=== PATIENT | male | born 1955 | race African-American/Black ===

== ENCOUNTER 2019-07-22 12:53 | Inpatient (IN) | payer MEDICARE, MEDICAID ==
[~2019-07-22] VITALS: Ht 195.6 cm; Wt 72.6 kg
[2019-07-22 12:53] VITALS: BP 105/72
--- NOTE | 2019-07-22 12:53 | NUR ---
ED Nurse Note: patient brought into ED from [facility] due to feeling weakness with BP of 81/54. patient did not get HD. 500ml of NS and zofran 4mg IVP was given en route. currently pt BP 91/60. pt is alert x3.
--- NOTE | 2019-07-22 13:30 | NUR ---
ED Nurse Note: blood sample sent down to lab
--- NOTE | 2019-07-22 13:32 | NUR ---
ED Nurse Note: x ray at bedside.
--- NOTE | 2019-07-22 13:40 | Diagnostic Imaging Report ---
Indication: Dyspnea Comparison: None A single view chest radiograph was obtained. Findings: No definite infiltrate or pulmonary vascular congestion identified. The heart is enlarged. The aorta is mildly enlarged consistent with atherosclerotic vascular disease. The bones are osteopenic. Impression: No acute disease
[2019-07-22 13:46] LABS: BASOPHILS % (AUTO) 1.7 % (0.0-2.0); EOSINOPHILS % (AUTO) 1.9 % (0.0-3.0); HEMATOCRIT 43.4 % (42.0-52.0); HEMOGLOBIN 14.1 G/DL (14.2-18.0); LYMPHOCYTES % (AUTO) 25.5 % (20.0-45.0); MEAN CORPUSCULAR VOLUME 95 FL (80-99); MONOCYTES % (AUTO) 7.9 % (1.0-10.0); PLATELET COUNT 105 K/UL (150-450); RED BLOOD COUNT 4.58 M/UL (4.70-6.10); RED CELL DISTRIBUTION WIDTH 13.2 % (11.6-14.8); WHITE BLOOD COUNT 4.3 K/UL (4.8-10.8)
[2019-07-22 14:04] LABS: ANION GAP 8 mmol/L (5-15); BLOOD UREA NITROGEN 31 mg/dL (7-18); CALCIUM 8.3 MG/DL (8.5-10.1); CARBON DIOXIDE 33 MMOL/L (21-32); CHLORIDE 98 MMOL/L (98-107); CREATININE 9.3 MG/DL (0.55-1.30); POTASSIUM 4.6 MMOL/L (3.5-5.1); SODIUM 139 MMOL/L (136-145)
--- NOTE | 2019-07-22 14:16 | NUR ---
ED Nurse Note: Pt in bed resting, no acute distress is noted at this time.
[2019-07-22 14:21] LABS: ALANINE AMINOTRANSFERASE 20 U/L (12-78); ALBUMIN 3.6 G/DL (3.4-5.0); ALBUMIN/GLOBULIN RATIO 1.1 (1.0-2.7); ALKALINE PHOSPHATASE 121 U/L (46-116); ASPARTATE AMINO TRANSFERASE 22 U/L (15-37); BILIRUBIN,TOTAL 0.7 MG/DL (0.2-1.0); CKMB 1.4 NG/ML (0.0-3.6); CREATINE KINASE 92 U/L (26-308)
[2019-07-22 14:33] VITALS: BP 120/92
[2019-07-22] MEDS ORDERED: FERROUS SULFAT325 MG ORAL (15:56)
[2019-07-22] MEDS ORDERED: ASPIR 8181 MG ORAL (15:56)
[2019-07-22] MEDS ORDERED: VITAMIN C500 M1 ORAL (15:56)
[2019-07-22] MEDS ORDERED: CYMBALTA30 MG ORAL (15:56)
[2019-07-22] MEDS ORDERED: ATORVASTATIN CA20 MG ORAL (15:56)
[2019-07-22] MEDS ORDERED: VITAMIN D32000 UNI3 PO (15:56)
[2019-07-22] MEDS ORDERED: GABAPENTIN100 MG ORAL (15:56)
[2019-07-22] MEDS ORDERED: NAMENDA5 MG ORAL (15:56)
[2019-07-22] MEDS ORDERED: ARGINAID POWDE1 EACH PO (15:56)
[2019-07-22] MEDS ORDERED: METOPROLOL SUCC50 MG ORAL (15:56)
[2019-07-22] MEDS ORDERED: NEPHROVITE1 TAB ORAL (15:56)
--- NOTE | 2019-07-22 15:57 | Emergency Room Report ---
History of Present Illness General Chief Complaint: Generalized Weakness Source: Patient Present Illness HPI This patient has a history of end-stage renal disease and is dialysis dependent. He states that he was feeling "terrible" this morning. He states he could not quite explain his feeling good but he just did not feel well. He went to dialysis and was sent here to [facility] because of a fast heart rate and low blood pressure. He did not receive dialysis there. He denies recent illness. Denies cough or congestion. Denies fever chills. He denies nausea or vomiting. He has no other complaints. Allergies: Coded Allergies: No Known Allergies (Unverified , 07/22/19) Patient History Past Medical History: see triage record, DM, HTN, renal disease, dialysis Social History: Reports: smoking; Denies: alcohol use, drug use Reviewed Nursing Documentation: PMH: Agreed; PSxH: Agreed Nursing Documentation-PMH Past Medical History: No History, Except For Hx Hypertension: Yes Hx Diabetes: Yes Review of Systems All Other Systems: negative except mentioned in HPI Physical Exam Vital Signs Date Time Temp Pulse Resp B/P (MAP) Pulse Ox O2 Delivery O2 Flow Rate FiO2 07/22/19 12:45 97.9 138 16 98/78 (85) 96 Room Air Sp02 EP Interpretation: reviewed, normal General Appearance: no apparent distress, alert, GCS 15, non-toxic Head: normocephalic, atraumatic Eyes: bilateral eye normal inspection, bilateral eye PERRL ENT: hearing grossly normal, normal pharynx, no angioedema, normal voice Neck: full range of motion, supple/symm/no masses Respiratory: chest non-tender, lungs clear, normal breath sounds, no respiratory distress, no retraction, no accessory muscle use, speaking full sentences Cardiovascular #1: no edema, tachycardia Gastrointestinal: normal bowel sounds, non tender, soft, non-distended, no guarding, no rebound Rectal: deferred Musculoskeletal: back normal, normal range of motion, non-tender, other - Cam walker on R. foot. Neurologic: alert, oriented x3, sensory intact, responsive, speech normal, no focal defects Psychiatric: judgement/insight normal, memory normal, mood/affect normal, no suicidal/homicidal ideation Skin: other - See RN skin exam Medical Decision Making Diagnostic Impression: Primary Impression: Tachycardia Additional Impression: ESRD needing dialysis ER Course This patient has significant tachycardia. The patient's heart rate is in the 130s. I am unsure of the etiology of this. The patient does need dialysis. I will admit the patient for further evaluation of his tachycardia and for dialysis. Overall, the patient's laboratory work-up is noncontributory. The patient's potassium is within normal limits. I feel that this patient needs further investigation. Laboratory Tests Test 07/22/19 13:18 White Blood Count 4.3 K/UL (4.8-10.8) L Red Blood Count 4.58 M/UL (4.70-6.10) L Hemoglobin 14.1 G/DL (14.2-18.0) L Hematocrit 43.4 % (42.0-52.0) Mean Corpuscular Volume 95 FL (80-99) Mean Corpuscular Hemoglobin 30.8 PG (27.0-31.0) Mean Corpuscular Hemoglobin Concent 32.6 G/DL (32.0-36.0) Red Cell Distribution Width 13.2 % (11.6-14.8) Platelet Count 105 K/UL (150-450) L Mean Platelet Volume 8.7 FL (6.5-10.1) Neutrophils (%) (Auto) 63.0 % (45.0-75.0) Lymphocytes (%) (Auto) 25.5 % (20.0-45.0) Monocytes (%) (Auto) 7.9 % (1.0-10.0) Eosinophils (%) (Auto) 1.9 % (0.0-3.0) Basophils (%) (Auto) 1.7 % (0.0-2.0) Sodium Level 139 MMOL/L (136-145) Potassium Level 4.6 MMOL/L (3.5-5.1) Chloride Level 98 MMOL/L (98-107) Carbon Dioxide Level 33 MMOL/L (21-32) H Anion Gap 8 mmol/L (5-15) Blood Urea Nitrogen 31 mg/dL (7-18) H Creatinine 9.3 MG/DL (0.55-1.30) H Estimate Glomerular Filtration Rate 5.7 mL/min (>60) Glucose Level 98 MG/DL (74-106) Lactic Acid Level 1.60 mmol/L (0.4-2.0) Calcium Level 8.3 MG/DL (8.5-10.1) L Total Bilirubin 0.7 MG/DL (0.2-1.0) Aspartate Amino Transferase (AST) 22 U/L (15-37) Alanine Aminotransferase (ALT) 20 U/L (12-78) Alkaline Phosphatase 121 U/L (46-116) H Total Creatine Kinase 92 U/L (26-308) Creatine Kinase MB 1.4 NG/ML (0.0-3.6) Creatine Kinase MB Relative Index 1.5 Troponin I 0.024 ng/mL (0.000-0.056) Total Protein 6.9 G/DL (6.4-8.2) Albumin 3.6 G/DL (3.4-5.0) Globulin 3.3 g/dL Albumin/Globulin Ratio 1.1 (1.0-2.7) EKG Diagnostic Results Rate: tachycardiac Rhythm: other - S.tachycardia ST Segments: other - NSST Rhythm Strip Diag. Results EP Interpretation: yes Rate: 130's Rhythm: no PVC's, no ectopy, other - S.tachycardia Chest X-Ray Diagnostic Results Chest X-Ray Diagnostic Results : Chest X-Ray Ordered: Yes # of Views/Limited/Complete: 1 View Indication: Shortness of Breath EP Interpretation: Yes Interpretation: no consolidation, no effusion, no pneumothorax, no acute cardiopulmonary disease Impression: No acute disease Electronically Signed by: DO Shelton Meyer Vital Signs Date Time Temp Pulse Resp B/P (MAP) Pulse Ox O2 Delivery O2 Flow Rate FiO2 07/22/19 14:33 97.8 122 16 120/92 97 Room Air Disposition: ADMITTED INPATIENT Condition: Serious Referrals: NON PHYSICIAN (PCP) Mónica Hearn DO Jul 22, 2019 15:57
[2019-07-22] MEDS ORDERED: Metoprolol Tartrate 5mg/5ml Inj IVP SCH (16:45)
--- NOTE | 2019-07-22 17:09 | NUR ---
ED Nurse Note: Della, nursing supervisor cleaning and annealing here counted $4200 ($[phone]) in front of patient with MARA Mijares and placed in safe envelope and taken to safe area. Addendum: 07/22/19 at 1719 by LATASHA taken to hospital's safe. Record [facility] # [id number]
--- NOTE | 2019-07-22 17:55 | NUR ---
ED Nurse Note: pt brought up to step down floor room 244-2 accompanied by animal laboratory technician and RN in stable condition. IV site left EJ intact. Belonging list signed.
--- NOTE | 2019-07-22 18:00 | NUR ---
NURSE NOTES: Report received from SITE TECHNICIAN Delphine Tong .Pt brought to SDU per blayne awake,alert in no resp distress,denies any discomfort or pain,S-Tach on the monitor,skinwarm and dry with IV to LT External Jugular 18 G,pt is HD,with access to Lt upper arm AV shunt,SR up x2 HOB elevated ,bed lock in lowest position will continue with plans of care.
[2019-07-22 18:10] VITALS: BP 123/78
[2019-07-22] MEDS ORDERED: Miralax 17gm pkt ORAL PRN (19:00)
--- NOTE | 2019-07-22 19:25 | NUR ---
NURSE NOTES: Received report from Deepali Mtz RN. Pt. observed resting in bed; awake and alert x3-4. Pt. refusing to do full body assessment, AM nurse endorsed skin remains intact. Pt denies skin alterations. Pt is on tele monitor with a HR of 126 noted. Pt on RA with an O2 saturation of 85%noted, pt then placed on 2L NC no further s/sx of respiratory distress noted. Pt admits to SOB with exertion and currently at rest; Wheezing noted bilaterally upon auscultation. O2 saturation of 95% noted at this time with application of O2. Left EJ 18G IV catheter noted which remains asymptomatic, intact and patent. Pt denies pain at this time. Medical history reviewed at bedside, pt denies hx of DM. Will discuss with admitting MD. Pt notes he is a [facility] patient with a ,,Fri schedule. Last HD on Friday. Pt denies onset of symptoms until 07/22/19 morning. Left upper arm AV shunt noted; bruit and thrill present. Left upper arm precautions implemented, including bedside sign. Confirmed lower dentures remains at assisted living facility, reading glasses and [employer] cell phone present at bedside. Pt confirms diana was sent off floor to nursing sup for placement in safe. Pt remains resting in bed; bed remains in lowest position with safety wheels engaged, call light within easy reach, bed alarm on, side rails up x3 and bed alarm activated. Will continue plan of care. Will continue to monitor.
[2019-07-22 20:00] VITALS: BP 107/71
[2019-07-22] MEDS: Atorvastatin 20mg tab ORAL SCH (20:20)
--- NOTE | 2019-07-22 20:30 | NUR ---
NURSE NOTES: Pt provided with materials for bed bath and oral care. Pt declines assistance and continues to refuse full skin line assessment. Family present at bedside. Pt provided with dinner compliant with diet order, decrease in appetite noted. Pt remains resting in bed; bed remains in lowest position with safety wheels engaged, call light within easy reach, bed alarm on, side rails up x3 and bed alarm activated. Will continue plan of care. Will continue to monitor.
[2019-07-22] MEDS: NovoLOG Insulin Flexpen SUBQ SCH (20:36)
[2019-07-22] MEDS: Heparin 5000 units/ml inj SUBQ SCH (20:36)
--- NOTE | 2019-07-22 21:00 | NUR ---
NURSE NOTES: Dr Marie present at bedside to assess patient. Pt remains resting in bed; bed remains in lowest position with safety wheels engaged, call light within easy reach, bed alarm on, side rails up x3 and bed alarm activated. Will continue plan of care. Will continue to monitor.
[2019-07-22] MEDS: Albuterol/Ipratropium 3ml neb HHN PRN ×2 (21:03→21:20)
[2019-07-22] MEDS: Zolpidem 5mg tab ORAL PRN (21:22)
--- NOTE | 2019-07-22 21:41 | History & Physical ---
History and Physical History & Physicial Humberto Marie MD Jul 22, 2019 21:41
--- NOTE | 2019-07-22 22:30 | History and Physical Report ---
DATE OF ADMISSION: 07/22/2019 CHIEF COMPLAINT: Palpitation. HISTORY OF PRESENT ILLNESS: This is a 63-year-old gentleman with past medical history significant for hypertension, end-stage renal disease on hemodialysis, renal osteodystrophy, secondary hyperparathyroidism, anxiety disorder, and history of right knee injury, status post of knee surgery as well as left upper extremity AV fistula placement, who has presented to the emergency department after was noted having the palpitations. The patient was on the way to dialysis center was noted to feel heart racing. He fell uncomfortable. He stated he felt terrible and could not quite explain his feeling. He was at [facility] [place] and subsequently on arrival over there, EMS was called and subsequently the patient was transferred to the emergency department. Upon arrival to the emergency room, the patient was noted to have a heart rate of 132 and subsequently was admitted to the hospital with wide complex tachycardia with unknown etiology. PAST MEDICAL HISTORY/PAST SURGICAL HISTORY: As above, history of end-stage renal disease on hemodialysis, history of hypertension, dyslipidemia, and renal osteodystrophy. He denies history of diabetes, however, in the records from the dialysis mention the patient has a history of diabetes type 2 with diabetic chronic kidney disease, not clear about that. History hypercalcemia, secondary hyperparathyroidism, E. coli infection in the past, vitamin D deficiency. The patient has a history of right knee surgery as well as the left upper extremity AV fistula placement. MEDICATIONS: At home, please refer to medication reconciliation. ALLERGIES: No known drug allergies. SOCIAL HISTORY: Denies any alcohol abuse. He smokes one pack of cigarettes a week. He denies any substance abuse. He lives in a board and [facility]. FAMILY HISTORY: Noncontributory. REVIEW OF SYSTEMS: Mostly as above. Denies any dysuria, frequency, or hematuria. Denies any hemoptysis or hematochezia. Denies any suicidal or homicidal ideation. Denies any loss of consciousness. Denies any double vision. PHYSICAL EXAMINATION: VITAL SIGNS: On admission, blood pressure is 98/78, pulse of 138, respirations 16, and temperature 97.9. GENERAL: The patient is awake and responsive, in no acute distress. HEAD AND NECK: Pupils are equal and reactive to light. Extraocular muscles intact. Neck was supple. No JVD. LUNGS: Good air entry. No wheeze or rhonchi. Decreased in the bases. HEART: S1, S2. Tachycardic. No murmur or gallops. ABDOMEN: Soft, nondistended, and nontender. Positive bowel sounds. EXTREMITIES: No cyanosis, clubbing, or edema. Left upper extremity AV fistula was noted functional. NEUROLOGIC: Cranial nerves II to XII grossly intact. The patient is moving all the extremities. Lower extremities weaker than upper extremities. The patient is mostly wheelchair bound. RECTAL/GENITOURINARY: Refused and deferred. PSYCHIATRIC: Mood and affect is intact. LABORATORY DATA: On admission from the emergency department, WBC of 4.3, hemoglobin 14, hematocrit 43, and platelets 105,000. Sodium 139, potassium 4.6, chloride 98, bicarb 33, BUN 31, and creatinine 9.3. GFR is 5.7. Lactic acid is 1.6. Calcium is 8.3. Total bilirubin of 0.9, alkaline phosphatase of 121. Troponin 0.024. TSH is 0.841, free T4 is 1.61. The patient's chest x-ray, no acute cardiopulmonary disease. EKG noted to be wide QRS tachycardia with ventricular rate of 132, right axis deviation, right bundle-branch block. The patient has ST depression in leads V5 and V6 and T-wave inversion was noted in aVL and tall T-waves in the lead V3. ASSESSMENT: 1. Supraventricular tachycardia. 2. End-stage renal disease, on hemodialysis. 3. Hypertension. 4. Anemia of chronic kidney disease. 5. Thrombocytopenia. PLAN: 1. Admit the patient to step-down TRUDI. 2. We will follow up with Dr. Francisco consultation from Pulmonary Critical Care, Dr. Toro from Nephrology, and Dr. Whitmore from Cardiology electrophysiology. 3. Monitor laboratory, 2D echo, and troponin. 4. Resume home medications. 5. Code status, Full Code. 6. DVT prophylaxis, heparin subcutaneous. Humberto Marie M.D. DR: GODFREY JOB#: [id number] CC:
[2019-07-23] VITALS: BP 142/78
[2019-07-23 04:00] VITALS: BP 148/88
--- NOTE | 2019-07-23 04:30 | NUR ---
NURSE NOTES: Elevated troponin resulted, 12 lead EKG performed at bedside. Results same as previous NSR R BBB w/T wave abnormality Will notify cardio. Will continue to monitor.
[2019-07-23 05:08] LABS: BASOPHILS % (AUTO) 2.1 % (0.0-2.0); EOSINOPHILS % (AUTO) 1.8 % (0.0-3.0); HEMATOCRIT 44.5 % (42.0-52.0); HEMOGLOBIN 14.4 G/DL (14.2-18.0); LYMPHOCYTES % (AUTO) 24.5 % (20.0-45.0); MEAN CORPUSCULAR VOLUME 95 FL (80-99); NEUTROPHILS % (AUTO) 64.5 % (45.0-75.0); PLATELET COUNT 100 K/UL (150-450); RED CELL DISTRIBUTION WIDTH 13.3 % (11.6-14.8); WHITE BLOOD COUNT 4.5 K/UL (4.8-10.8)
--- NOTE | 2019-07-23 05:30 | NUR ---
NURSE NOTES: Bedside blood glucose resulted in 61mg/dL. Pt was alert, oriented and asymptomatic. Pt given 120mL of juice per protocol. Will recheck BG in 15 min per protocol. Will continue to monitor.
[2019-07-23] MEDS: NovoLOG Insulin Flexpen SUBQ SCH ×5 (05:45→21:00)
--- NOTE | 2019-07-23 05:45 | NUR ---
NURSE NOTES: Rechecked patients blood sugar per protocol, BG now 73mg/dL. No further actions required. Will continue to monitor.
[2019-07-23 06:01] LABS: ALANINE AMINOTRANSFERASE 19 U/L (12-78); ALBUMIN 3.1 G/DL (3.4-5.0); ALKALINE PHOSPHATASE 102 U/L (46-116); ANION GAP 9 mmol/L (5-15); ASPARTATE AMINO TRANSFERASE 21 U/L (15-37); BILIRUBIN,TOTAL 0.7 MG/DL (0.2-1.0); BLOOD UREA NITROGEN 34 mg/dL (7-18); CALCIUM 8.2 MG/DL (8.5-10.1); CARBON DIOXIDE 31 MMOL/L (21-32); CHLORIDE 98 MMOL/L (98-107); CHOLESTEROL 90 MG/DL (< 200); CREATININE 10.7 MG/DL (0.55-1.30); HDL CHOLESTEROL 36 MG/DL (40-60); POTASSIUM 4.7 MMOL/L (3.5-5.1); SODIUM 138 MMOL/L (136-145); TRIGLYCERIDES 55 MG/DL (30-150)
[2019-07-23 06:18] LABS: PHOSPHORUS 3.1 MG/DL (2.5-4.9)
--- NOTE | 2019-07-23 07:01 | NUR ---
HAND-OFF: Report given to MARA Weems. Pt remains stable at this time.
--- NOTE | 2019-07-23 07:02 | NUR ---
NURSE NOTES: Received report from MARA Gibbs. Observed patient in bed, asleep, arousable to verbal stimuli, verbally responsive and able to make needs known. On room air, no distress noted at this time. Left EJ IV intact and patent. Left upper arm AV shunt noted with good bruit and thrill. Patient denies pain/discomfort at this time. Safety precautions in place, bed locked, alarmed, and in lowest position, side rails up x3, and call light left within reach. Instructed to use call light/call for assistance, verbalized understanding. Will continue plan of care and will continue to monitor patient.
[2019-07-23 08:00] VITALS: BP 155/85
[2019-07-23] MEDS: DULoxetine 30mg cap ORAL SCH (08:45)
[2019-07-23] MEDS: Aspirin EC 81mg tab ORAL SCH (08:45)
[2019-07-23] MEDS: Heparin 5000 units/ml inj SUBQ SCH ×2 (08:45→20:41)
[2019-07-23] MEDS: Metoprolol Succinate XL 50mg tab ORAL SCH ×2 (08:45→20:40)
--- NOTE | 2019-07-23 08:55 | Consultation ---
Consult Note Consult Note asked to eval at the request of Dr Marie for dialysis management patient interviewed and examined data reviewed Patient states that the he has been on hemodialysis for close to 20 years and he did not get his dialysis yesterday as he was not feeling well the reason for his end-stage renal disease is polycystic kidney disease he also has 3 sons the older one was on dialysis and the middle 1 currently is on hemodialysis and he has no contact with his younger son. Patient denies any chest pain however at times feels short of breath. Assessment/Plan ESRD PCKD Tachyarrythmia HTN , however Hypotensive periodically Anemia Depression Plan: HD in am per cardiology per orders Cardiology: Recurrent palpitations of sudden onset and termination despite Lopressor 50 bid. 12 lead ECG by Paramedics at 12:02 and 12:09 and ECG at [place] at 13:37 on all same morphology. Likely SVT with aberrancy ( RBBB, LAFB) as 12 lead in SR has identical ECG morphology. Needs EP Study and ablation at [facility] as patient was hypotensive during the episodes Darron Toro MD Jul 23, 2019 08:54
--- NOTE | 2019-07-23 10:29 | NUR ---
NURSE NOTES: 2D echo at bedside.
--- NOTE | 2019-07-23 10:44 | Consultation ---
History of Present Illness General Date patient seen: Jul 23, 2019 Chief Complaint: Generalized Weakness Present Illness HPI 63 year old male with history of end-stage renal disease, on dialysis, HTN, smoking was sent to [facility] because from Dialysis Center for fast heart rate and low blood pressure. He did not receive dialysis there. He denies recent illness. Denies cough or congestion. Pt was hypotensive in ER and got one liter of NS and admitted to [facility] for further treatment. Allergies: Coded Allergies: No Known Allergies (Unverified , 07/22/19) Medication History Scheduled Arginine/Ascorbate Sod/Pari AC (Arginaid Powder), 1 EACH PO BID, (Reported) Ascorbic Acid* (Vitamin C*), 500 MG ORAL TWICE A DAY, (Reported) Aspirin* (Aspir 81*), 81 MG ORAL DAILY, (Reported) Atorvastatin Calcium* (Atorvastatin Calcium*), 20 MG ORAL BEDTIME, (Reported) Duloxetine Hcl* (Cymbalta*), 30 MG ORAL DAILY, (Reported) Ferrous Sulfate* (Ferrous Sulfate*), 325 MG ORAL DAILY, (Reported) Gabapentin* (Gabapentin*), 100 MG ORAL THREE TIMES A DAY, (Reported) Memantine Hcl* (Namenda*), 5 MG ORAL DAILY, (Reported) Metoprolol Succinate* (Metoprolol Succinate*), 50 MG ORAL BID, (Reported) Vitamin B Cmplx/Vit C/Folic AC (Nephro-Pari Tablet), 1 TAB ORAL DAILY, (Reported ) Miscellaneous Medications Cholecalciferol (Vitamin D3) (Vitamin D3), 2,000 UNIT PO, (Reported) Patient History Healthcare decision maker Resuscitation status Full Code Advanced Directive on File Past Medical/Surgical History Past Medical/Surgical History: (1) Hypotension (2) Polycystic kidney disease (3) Depression (4) History of hypertension (5) ESRD (end stage renal disease) Review of Systems All Other Systems: negative except mentioned in HPI Physical Exam General Appearance: cachetic, thin Lines, tubes and drains: peripheral, central line HEENT: normocephalic, atraumatic Neck: non-tender, normal alignment Respiratory/Chest: chest wall non-tender, lungs clear Breasts: no masses Cardiovascular/Chest: normal peripheral pulses, normal rate Abdomen: normal bowel sounds Genitourinary/Rectal: normal genital exam Extremities: normal range of motion Last 24 Hour Vital Signs Date Time Temp Pulse Resp B/P (MAP) Pulse Ox O2 Delivery O2 Flow Rate FiO2 07/23/19 08:45 71 155/85 07/23/19 08:00 97.9 71 20 155/85 (108) 98 07/23/19 08:00 Nasal Cannula 2.0 07/23/19 07:36 70 07/23/19 04:00 Nasal Cannula 2.0 07/23/19 04:00 98.0 86 20 148/88 (108) 91 07/23/19 03:43 68 07/23/19 00:00 98.8 74 20 142/78 (99) 91 07/23/19 00:00 Nasal Cannula 2.0 07/22/19 23:35 71 07/22/19 21:26 85 20 99 Nasal Cannula 2.0 28 79 20 90 07/22/19 20:00 99.1 126 20 107/71 (83) 92 07/22/19 20:00 Nasal Cannula 2.0 07/22/19 19:22 129 07/22/19 18:53 Nasal Cannula 2.0 07/22/19 18:10 98.1 126 20 123/78 (93) 97 07/22/19 18:02 125 07/22/19 17:55 98.0 128 17 110/75 98 Room Air 07/22/19 16:46 128 114/83 07/22/19 14:33 97.8 122 16 120/92 97 Room Air 07/22/19 12:53 97.9 130 16 105/72 96 Room Air 07/22/19 12:53 130 16 Room Air 07/22/19 12:45 97.9 138 16 98/78 (85) 96 Room Air Intake and Output 07/22/19 07/23/19 19:00 07:00 Intake Total 500 ml 482 ml Balance 500 ml 482 ml Intake Oral 482 ml IV Total 500 ml Laboratory Tests Test 07/22/19 13:18 07/22/19 13:30 07/23/19 04:40 White Blood Count 4.3 K/UL (4.8-10.8) L 4.5 K/UL (4.8-10.8) L Red Blood Count 4.58 M/UL (4.70-6.10) L 4.70 M/UL (4.70-6.10) Hemoglobin 14.1 G/DL (14.2-18.0) L 14.4 G/DL (14.2-18.0) Hematocrit 43.4 % (42.0-52.0) 44.5 % (42.0-52.0) Mean Corpuscular Volume 95 FL (80-99) 95 FL (80-99) Mean Corpuscular Hemoglobin 30.8 PG (27.0-31.0) 30.6 PG (27.0-31.0) Mean Corpuscular Hemoglobin Concent 32.6 G/DL (32.0-36.0) 32.3 G/DL (32.0-36.0) Red Cell Distribution Width 13.2 % (11.6-14.8) 13.3 % (11.6-14.8) Platelet Count 105 K/UL (150-450) L 100 K/UL (150-450) L Mean Platelet Volume 8.7 FL (6.5-10.1) 8.6 FL (6.5-10.1) Neutrophils (%) (Auto) 63.0 % (45.0-75.0) 64.5 % (45.0-75.0) Lymphocytes (%) (Auto) 25.5 % (20.0-45.0) 24.5 % (20.0-45.0) Monocytes (%) (Auto) 7.9 % (1.0-10.0) 7.0 % (1.0-10.0) Eosinophils (%) (Auto) 1.9 % (0.0-3.0) 1.8 % (0.0-3.0) Basophils (%) (Auto) 1.7 % (0.0-2.0) 2.1 % (0.0-2.0) H Sodium Level 139 MMOL/L (136-145) 138 MMOL/L (136-145) Potassium Level 4.6 MMOL/L (3.5-5.1) 4.7 MMOL/L (3.5-5.1) Chloride Level 98 MMOL/L (98-107) 98 MMOL/L (98-107) Carbon Dioxide Level 33 MMOL/L (21-32) H 31 MMOL/L (21-32) Anion Gap 8 mmol/L (5-15) 9 mmol/L (5-15) Blood Urea Nitrogen 31 mg/dL (7-18) H 34 mg/dL (7-18) H Creatinine 9.3 MG/DL (0.55-1.30) H 10.7 MG/DL (0.55-1.30) H Estimat Glomerular Filtration Rate 5.7 mL/min (>60) 5.9 mL/min (>60) Glucose Level 98 MG/DL (74-106) 66 MG/DL (74-106) L Lactic Acid Level 1.60 mmol/L (0.4-2.0) Calcium Level 8.3 MG/DL (8.5-10.1) L 8.2 MG/DL (8.5-10.1) L Total Bilirubin 0.7 MG/DL (0.2-1.0) 0.7 MG/DL (0.2-1.0) Aspartate Amino Transf (AST/SGOT) 22 U/L (15-37) 21 U/L (15-37) Alanine Aminotransferase (ALT/SGPT) 20 U/L (12-78) 19 U/L (12-78) Alkaline Phosphatase 121 U/L (46-116) H 102 U/L (46-116) Total Creatine Kinase 92 U/L (26-308) Creatine Kinase MB 1.4 NG/ML (0.0-3.6) Creatine Kinase MB Relative Index 1.5 Troponin I 0.024 ng/mL (0.000-0.056) Total Protein 6.9 G/DL (6.4-8.2) 6.1 G/DL (6.4-8.2) L Albumin 3.6 G/DL (3.4-5.0) 3.1 G/DL (3.4-5.0) L Globulin 3.3 g/dL 3.0 g/dL Albumin/Globulin Ratio 1.1 (1.0-2.7) 1.0 (1.0-2.7) Thyroid Stimulating Hormone (TSH) 0.841 uiU/mL (0.358-3.740) 0.244 uiU/mL (0.358-3.740) Free Thyroxine 1.61 NG/DL (0.76-1.46) H Hemoglobin A1c 5.0 % (4.3-6.0) Uric Acid 4.1 MG/DL (2.6-7.2) Phosphorus Level 3.1 MG/DL (2.5-4.9) Magnesium Level 2.2 MG/DL (1.8-2.4) C-Reactive Protein, Quantitative < 0.4 mg/dL (0.00-0.90) Pro-B-Type Natriuretic Peptide 51580 pg/mL (0-125) H Triglycerides Level 55 MG/DL (30-150) Cholesterol Level 90 MG/DL (< 200) LDL Cholesterol 50 mg/dL (<100) HDL Cholesterol 36 MG/DL (40-60) L Cholesterol/HDL Ratio 2.5 (3.3-4.4) L Height (Feet): 6 Height (Inches): 5.00 Weight (Pounds): 169 Medications Current Medications Medications (Trade) Dose Ordered Sig/Cristofer Route PRN Reason Start Time Stop Time Status Last Admin Dose Admin Acetaminophen (Tylenol) 650 mg Q4H PRN ORAL fever 07/22/19 19:00 08/21/19 18:59 Albuterol/ Ipratropium (Albuterol/ Ipratropium) 3 ml Q6HRT PRN HHN dyspnea 07/22/19 19:00 07/27/19 18:59 07/22/19 21:20 Aspirin (Ecotrin) 81 mg DAILY ORAL 07/23/19 09:00 08/22/19 08:59 07/23/19 08:45 Atorvastatin Calcium (Lipitor) 20 mg BEDTIME ORAL 07/22/19 21:00 08/21/19 20:59 07/22/19 20:20 Clonidine HCl (Catapres Tab) 0.1 mg Q4H PRN ORAL For High Blood Pressure 07/22/19 19:00 08/21/19 18:59 Dextrose (Dextrose 50%) 25 ml Q30M PRN IV Hypoglycemia 07/22/19 19:00 08/21/19 18:59 Dextrose (Dextrose 50%) 50 ml Q30M PRN IV Hypoglycemia 07/22/19 19:00 08/21/19 18:59 Duloxetine HCl (Cymbalta) 30 mg DAILY ORAL 07/23/19 09:00 08/22/19 08:59 07/23/19 08:45 Gabapentin (Neurontin) 100 mg THREE TIMES A DAY ORAL 07/23/19 09:00 08/22/19 08:59 07/23/19 08:45 Heparin Sodium (Porcine) (Heparin 5000 units/ml) 5,000 units EVERY 12 HOURS SUBQ 07/22/19 21:00 08/21/19 20:59 Insulin Aspart (NovoLOG) BEFORE MEALS AND HS SUBQ 07/22/19 21:00 08/21/19 20:59 Metoprolol Succinate (Toprol XL) 50 mg Q12HR ORAL 07/23/19 09:00 08/22/19 08:59 07/23/19 08:45 Metoprolol Tartrate (Lopressor) 5 mg Q5MIN X 3 IVP 07/22/19 16:45 08/21/19 16:44 07/22/19 16:46 Ondansetron HCl (Zofran) 4 mg Q6H PRN IVP Nausea & Vomiting 07/22/19 19:00 08/21/19 18:59 Polyethylene Glycol (Miralax) 17 gm HSPRN PRN ORAL Constipation 07/22/19 19:00 08/21/19 18:59 Zolpidem Tartrate (Ambien) 5 mg HSPRN PRN ORAL Insomnia 07/22/19 19:00 07/29/19 18:59 07/22/19 21:22 Assessment/Plan Problem List: (1) Hypotension ICD Codes: I95.9 - Hypotension, unspecified SNOMED: 22808974 (2) COPD (chronic obstructive pulmonary disease) ICD Codes: J44.9 - Chronic obstructive pulmonary disease, unspecified SNOMED: 09690940 (3) Nicotine addiction ICD Codes: F17.200 - Nicotine dependence, unspecified, uncomplicated SNOMED: 80767621 (4) Tachycardia ICD Codes: R00.0 - Tachycardia, unspecified; Z99.2 - Dependence on renal dialysis SNOMED: 2636197 (5) Polycystic kidney disease ICD Codes: Q61.3 - Polycystic kidney, unspecified SNOMED: 242476576 (6) ESRD (end stage renal disease) ICD Codes: N18.6 - End stage renal disease SNOMED: 40777793 (7) History of hypertension ICD Codes: Z86.79 - Personal history of other diseases of the circulatory system SNOMED: 638066516 (8) Depression ICD Codes: F32.9 - Major depressive disorder, single episode, unspecified SNOMED: 43325334 Assessment/Plan: telemetry monitoring respiratory treatment Nicotine Patch if needed echo titrate cardiac meds dvt prophylaxis resume antidepressants Funmilayo Francisco MD Jul 23, 2019 10:44
--- NOTE | 2019-07-23 11:30 | Cardiac Electrophysiology PN ---
Subjective Subjective Recurrent palpitations of sudden onset and termination despite Lopressor 50 bid. 12 lead ECG by Paramedics at 12:02 and 12:09 and ECG at [place] at 13:37 on all same morphology. Likely SVT with aberrancy ( RBBB, LAFB) as 12 lead in SR has identical ECG morphology. Needs EP Study and ablation at [facility] as patient was hypotensive during the episodes Dictated [id number] DW RN, Dr Marie and [facility] Transfer [facility] Objective Last 24 Hour Vital Signs Date Time Temp Pulse Resp B/P (MAP) Pulse Ox O2 Delivery O2 Flow Rate FiO2 07/23/19 08:45 71 155/85 07/23/19 08:00 97.9 71 20 155/85 (108) 98 07/23/19 08:00 Nasal Cannula 2.0 07/23/19 07:36 70 07/23/19 04:00 Nasal Cannula 2.0 07/23/19 04:00 98.0 86 20 148/88 (108) 91 07/23/19 03:43 68 07/23/19 00:00 98.8 74 20 142/78 (99) 91 07/23/19 00:00 Nasal Cannula 2.0 07/22/19 23:35 71 07/22/19 21:26 85 20 99 Nasal Cannula 2.0 28 79 20 90 07/22/19 20:00 99.1 126 20 107/71 (83) 92 07/22/19 20:00 Nasal Cannula 2.0 07/22/19 19:22 129 07/22/19 18:53 Nasal Cannula 2.0 07/22/19 18:10 98.1 126 20 123/78 (93) 97 07/22/19 18:02 125 07/22/19 17:55 98.0 128 17 110/75 98 Room Air 07/22/19 16:46 128 114/83 07/22/19 14:33 97.8 122 16 120/92 97 Room Air 07/22/19 12:53 97.9 130 16 105/72 96 Room Air 07/22/19 12:53 130 16 Room Air 07/22/19 12:45 97.9 138 16 98/78 (85) 96 Room Air Intake and Output 07/22/19 07/23/19 19:00 07:00 Intake Total 500 ml 482 ml Balance 500 ml 482 ml Intake Oral 482 ml IV Total 500 ml Laboratory Tests Test 07/22/19 13:18 07/22/19 13:30 07/23/19 04:40 White Blood Count 4.3 K/UL (4.8-10.8) L 4.5 K/UL (4.8-10.8) L Red Blood Count 4.58 M/UL (4.70-6.10) L 4.70 M/UL (4.70-6.10) Hemoglobin 14.1 G/DL (14.2-18.0) L 14.4 G/DL (14.2-18.0) Hematocrit 43.4 % (42.0-52.0) 44.5 % (42.0-52.0) Mean Corpuscular Volume 95 FL (80-99) 95 FL (80-99) Mean Corpuscular Hemoglobin 30.8 PG (27.0-31.0) 30.6 PG (27.0-31.0) Mean Corpuscular Hemoglobin Concent 32.6 G/DL (32.0-36.0) 32.3 G/DL (32.0-36.0) Red Cell Distribution Width 13.2 % (11.6-14.8) 13.3 % (11.6-14.8) Platelet Count 105 K/UL (150-450) L 100 K/UL (150-450) L Mean Platelet Volume 8.7 FL (6.5-10.1) 8.6 FL (6.5-10.1) Neutrophils (%) (Auto) 63.0 % (45.0-75.0) 64.5 % (45.0-75.0) Lymphocytes (%) (Auto) 25.5 % (20.0-45.0) 24.5 % (20.0-45.0) Monocytes (%) (Auto) 7.9 % (1.0-10.0) 7.0 % (1.0-10.0) Eosinophils (%) (Auto) 1.9 % (0.0-3.0) 1.8 % (0.0-3.0) Basophils (%) (Auto) 1.7 % (0.0-2.0) 2.1 % (0.0-2.0) H Sodium Level 139 MMOL/L (136-145) 138 MMOL/L (136-145) Potassium Level 4.6 MMOL/L (3.5-5.1) 4.7 MMOL/L (3.5-5.1) Chloride Level 98 MMOL/L (98-107) 98 MMOL/L (98-107) Carbon Dioxide Level 33 MMOL/L (21-32) H 31 MMOL/L (21-32) Anion Gap 8 mmol/L (5-15) 9 mmol/L (5-15) Blood Urea Nitrogen 31 mg/dL (7-18) H 34 mg/dL (7-18) H Creatinine 9.3 MG/DL (0.55-1.30) H 10.7 MG/DL (0.55-1.30) H Estimat Glomerular Filtration Rate 5.7 mL/min (>60) 5.9 mL/min (>60) Glucose Level 98 MG/DL (74-106) 66 MG/DL (74-106) L Lactic Acid Level 1.60 mmol/L (0.4-2.0) Calcium Level 8.3 MG/DL (8.5-10.1) L 8.2 MG/DL (8.5-10.1) L Total Bilirubin 0.7 MG/DL (0.2-1.0) 0.7 MG/DL (0.2-1.0) Aspartate Amino Transf (AST/SGOT) 22 U/L (15-37) 21 U/L (15-37) Alanine Aminotransferase (ALT/SGPT) 20 U/L (12-78) 19 U/L (12-78) Alkaline Phosphatase 121 U/L (46-116) H 102 U/L (46-116) Total Creatine Kinase 92 U/L (26-308) Creatine Kinase MB 1.4 NG/ML (0.0-3.6) Creatine Kinase MB Relative Index 1.5 Troponin I 0.024 ng/mL (0.000-0.056) Total Protein 6.9 G/DL (6.4-8.2) 6.1 G/DL (6.4-8.2) L Albumin 3.6 G/DL (3.4-5.0) 3.1 G/DL (3.4-5.0) L Globulin 3.3 g/dL 3.0 g/dL Albumin/Globulin Ratio 1.1 (1.0-2.7) 1.0 (1.0-2.7) Thyroid Stimulating Hormone (TSH) 0.841 uiU/mL (0.358-3.740) 0.244 uiU/mL (0.358-3.740) Free Thyroxine 1.61 NG/DL (0.76-1.46) H Hemoglobin A1c 5.0 % (4.3-6.0) Uric Acid 4.1 MG/DL (2.6-7.2) Phosphorus Level 3.1 MG/DL (2.5-4.9) Magnesium Level 2.2 MG/DL (1.8-2.4) C-Reactive Protein, Quantitative < 0.4 mg/dL (0.00-0.90) Pro-B-Type Natriuretic Peptide 75652 pg/mL (0-125) H Triglycerides Level 55 MG/DL (30-150) Cholesterol Level 90 MG/DL (< 200) LDL Cholesterol 50 mg/dL (<100) HDL Cholesterol 36 MG/DL (40-60) L Cholesterol/HDL Ratio 2.5 (3.3-4.4) L Gerard Whitmore MD Jul 23, 2019 11:30
--- NOTE | 2019-07-23 11:41 | NUR ---
NURSE NOTES: Dr Whitmore at bedside, ordered STAT EKG. Carried out, results given to
[2019-07-23 12:00] VITALS: BP 154/84
--- NOTE | 2019-07-23 15:20 | NUR ---
HAND-OFF: Report given to Deepali Purdy RN?. Endorsed plan of care. Patient in stable condition.
--- NOTE | 2019-07-23 15:30 | NUR ---
NURSE NOTES: Assumed pt care,report received from Arlene Horton RN.Pt awake,alert no resp distress denies any c/o pain or discomfort,SR on the monitor.Informed pt re Hemodialysis tomorrow with [facility] and need for a signed consent.,verbalized understanding.
--- NOTE | 2019-07-23 15:48 | NUR ---
CASE MANAGEMENT:INITIAL REVIEW 63 YR OLD MALE BIBA FROM [facility] CC;GENERALIZED WEAKNESS SI;TACHYCARDIA. ESRD NEEDING DIALYSIS. 97.9 138 16 98/78 96% ON RA BUN 34 CR 10.7 BG 66 BNP [id number] IS;CXR - No acute disease ADMITTED TO SDU SDU STATUS DCP;FROM [facility]
[2019-07-23 16:00] VITALS: BP 161/88
--- NOTE | 2019-07-23 16:30 | Consultation ---
DATE OF CONSULTATION: 07/23/2019 CARDIOLOGY CONSULTATION CONSULTING PHYSICIAN: Gerard Whitmore M.D. REFERRING PHYSICIAN: Humberto Marie M.D. REASON FOR CONSULTATION: Palpitation and supraventricular tachycardia. HISTORY OF PRESENT ILLNESS: The patient is a very pleasant 63-year-old gentleman with history of hypertension and end-stage renal disease on hemodialysis as well as hyperparathyroidism and anxiety disorder was brought to the emergency room as he was noted to have palpitation. On the way to dialysis, he felt that his heart was racing and felt uncomfortable. The patient was noted to be tachycardic at the [facility] and paramedics were called. The patient was brought to the emergency room. In the ER, the patient's heart rate was more than 130 beats per minute and it was wide complex tachycardia with right bundle-branch block morphology. The patient was admitted to step-down unit and Cardiology electrophysiology consultation was requested for further evaluation. It is of note that the patient's EKG on July 22, 2019 at 12:02 as well as at 13:37 showed the same morphology of wide complex tachycardia, likely SVT with aberrancy. The patient was admitted. Overnight, the patient again had an episode of SVT of sudden onset and sudden termination. REVIEW OF SYSTEMS: Review of systems was negative other than what was mentioned in history of present illness. PAST MEDICAL HISTORY: As mentioned above. FAMILY HISTORY: Noncontributory. SOCIAL HISTORY: He lives in assisted living. Smokes a pack of cigarettes a week. Does not drink alcohol or use any drugs. FAMILY HISTORY: Noncontributory. PHYSICAL EXAMINATION: VITAL SIGNS: Show blood pressure of 150/85, pulse 71, respirations 18, and temperature 97.9. HEAD AND NECK: Shows no jugular venous distention. LUNGS: Clear. CARDIOVASCULAR: Regular S1 and S2 with no gallop or murmur. ABDOMEN: Soft. EXTREMITIES: No pitting edema. LABORATORY AND DIAGNOSTIC DATA: Labs show white count of 4.5, hemoglobin of 14.4, hematocrit of 44.5, and platelet count of 100. Sodium 138, potassium 4.7, BUN of 34, creatinine of 2.7, glucose of . BNP is 13,331. First troponin was negative. ASSESSMENT AND PLAN: 1. Recurrent palpitation. The patient states that he has had palpitation off and on over the last year, but never this severe and never lasted this long. EKG showed wide complex tachycardia with no discrete P-wave with right bundle-branch block and left axis deviation morphology. This could be SVT with aberrancy, right bundle-branch block and left anterior hemiblock morphology. We will get a 12-lead EKG to compare the EKG and sinus rhythm. This happened while the patient is on metoprolol 50 mg b.i.d. The best option at this point would be to undergo electrophysiology study for further evaluation of his arrhythmia. This will be discussed with the patient and Dr. Marie. Transfer the patient to [facility] for further evaluation. In the meantime, continue the patient on b.i.d. 2. Hypertension on Toprol 50 mg b.i.d. as well p.r.n. clonidine. 3. End-stage renal disease, on hemodialysis. 4. Hyperlipidemia on Lipitor. Thank you very much, Dr. Marie, for allowing me to participate in the care of this patient. Please do not hesitate to contact me for any questions regarding my evaluation. Sincerely, Gerard Whitmore M.D. DR: Ignacio JOB#: [id number] CC:
--- NOTE | 2019-07-23 17:03 | Internal Med Progress Note ---
Subjective Physician Name Humberto Marie Attending Physician Humberto Marie MD Current Medications Medications (Trade) Dose Ordered Sig/Cristofer Route PRN Reason Start Time Stop Time Status Last Admin Dose Admin Acetaminophen (Tylenol) 650 mg Q4H PRN ORAL fever 07/22/19 19:00 08/21/19 18:59 Albuterol/ Ipratropium (Albuterol/ Ipratropium) 3 ml Q6HRT PRN HHN dyspnea 07/22/19 19:00 07/27/19 18:59 07/22/19 21:20 Aspirin (Ecotrin) 81 mg DAILY ORAL 07/23/19 09:00 08/22/19 08:59 07/23/19 08:45 Atorvastatin Calcium (Lipitor) 20 mg BEDTIME ORAL 07/22/19 21:00 08/21/19 20:59 07/22/19 20:20 Clonidine HCl (Catapres Tab) 0.1 mg Q4H PRN ORAL For High Blood Pressure 07/22/19 19:00 08/21/19 18:59 Dextrose (Dextrose 50%) 25 ml Q30M PRN IV Hypoglycemia 07/22/19 19:00 08/21/19 18:59 Dextrose (Dextrose 50%) 50 ml Q30M PRN IV Hypoglycemia 07/22/19 19:00 08/21/19 18:59 Duloxetine HCl (Cymbalta) 30 mg DAILY ORAL 07/23/19 09:00 08/22/19 08:59 07/23/19 08:45 Gabapentin (Neurontin) 100 mg THREE TIMES A DAY ORAL 07/23/19 09:00 08/22/19 08:59 07/23/19 13:18 Heparin Sodium (Porcine) (Heparin 5000 units/ml) 5,000 units EVERY 12 HOURS SUBQ 07/22/19 21:00 08/21/19 20:59 Insulin Aspart (NovoLOG) BEFORE MEALS AND HS SUBQ 07/22/19 21:00 08/21/19 20:59 Metoprolol Succinate (Toprol XL) 50 mg Q12HR ORAL 07/23/19 09:00 08/22/19 08:59 07/23/19 08:45 Ondansetron HCl (Zofran) 4 mg Q6H PRN IVP Nausea & Vomiting 07/22/19 19:00 08/21/19 18:59 Polyethylene Glycol (Miralax) 17 gm HSPRN PRN ORAL Constipation 07/22/19 19:00 08/21/19 18:59 Zolpidem Tartrate (Ambien) 5 mg HSPRN PRN ORAL Insomnia 07/22/19 19:00 07/29/19 18:59 07/22/19 21:22 Allergies: Coded Allergies: No Known Allergies (Unverified , 07/22/19) Subjective Awake, alert, responsive, denies any chest pain, denies any shortness of breath or palpitation. Objective Last Vital Signs Date Time Temp Pulse Resp B/P (MAP) Pulse Ox O2 Delivery O2 Flow Rate FiO2 07/23/19 12:00 98.0 68 20 154/84 (107) 92 07/23/19 12:00 Nasal Cannula 2.0 07/22/19 21:26 28 Laboratory Tests Test 07/23/19 04:40 White Blood Count 4.5 K/UL (4.8-10.8) L Red Blood Count 4.70 M/UL (4.70-6.10) Hemoglobin 14.4 G/DL (14.2-18.0) Hematocrit 44.5 % (42.0-52.0) Mean Corpuscular Volume 95 FL (80-99) Mean Corpuscular Hemoglobin 30.6 PG (27.0-31.0) Mean Corpuscular Hemoglobin Concent 32.3 G/DL (32.0-36.0) Red Cell Distribution Width 13.3 % (11.6-14.8) Platelet Count 100 K/UL (150-450) L Mean Platelet Volume 8.6 FL (6.5-10.1) Neutrophils (%) (Auto) 64.5 % (45.0-75.0) Lymphocytes (%) (Auto) 24.5 % (20.0-45.0) Monocytes (%) (Auto) 7.0 % (1.0-10.0) Eosinophils (%) (Auto) 1.8 % (0.0-3.0) Basophils (%) (Auto) 2.1 % (0.0-2.0) H Sodium Level 138 MMOL/L (136-145) Potassium Level 4.7 MMOL/L (3.5-5.1) Chloride Level 98 MMOL/L (98-107) Carbon Dioxide Level 31 MMOL/L (21-32) Anion Gap 9 mmol/L (5-15) Blood Urea Nitrogen 34 mg/dL (7-18) H Creatinine 10.7 MG/DL (0.55-1.30) H Estimat Glomerular Filtration Rate 5.9 mL/min (>60) Glucose Level 66 MG/DL (74-106) L Hemoglobin A1c 5.0 % (4.3-6.0) Uric Acid 4.1 MG/DL (2.6-7.2) Calcium Level 8.2 MG/DL (8.5-10.1) L Phosphorus Level 3.1 MG/DL (2.5-4.9) Magnesium Level 2.2 MG/DL (1.8-2.4) Total Bilirubin 0.7 MG/DL (0.2-1.0) Aspartate Amino Transf (AST/SGOT) 21 U/L (15-37) Alanine Aminotransferase (ALT/SGPT) 19 U/L (12-78) Alkaline Phosphatase 102 U/L (46-116) C-Reactive Protein, Quantitative < 0.4 mg/dL (0.00-0.90) Pro-B-Type Natriuretic Peptide 00837 pg/mL (0-125) H Total Protein 6.1 G/DL (6.4-8.2) L Albumin 3.1 G/DL (3.4-5.0) L Globulin 3.0 g/dL Albumin/Globulin Ratio 1.0 (1.0-2.7) Triglycerides Level 55 MG/DL (30-150) Cholesterol Level 90 MG/DL (< 200) LDL Cholesterol 50 mg/dL (<100) HDL Cholesterol 36 MG/DL (40-60) L Cholesterol/HDL Ratio 2.5 (3.3-4.4) L Thyroid Stimulating Hormone (TSH) 0.244 uiU/mL (0.358-3.740) Intake and Output 07/22/19 07/23/19 19:00 07:00 Intake Total 500 ml 482 ml Balance 500 ml 482 ml Intake Oral 482 ml IV Total 500 ml Objective GENERAL: The patient is awake and responsive, in no acute distress. HEAD AND NECK: Pupils are equal and reactive to light. Extraocular muscles intact. Neck was supple. No JVD. LUNGS: Good air entry. No wheeze or rhonchi. Decreased in the bases. HEART: S1, S2 RR. No murmur or gallops. ABDOMEN: Soft, nondistended, and nontender. Positive bowel sounds. EXTREMITIES: No cyanosis, clubbing, or edema. Left upper extremity AV fistula was noted functional. NEUROLOGIC: Cranial nerves II to XII grossly intact. The patient is moving all the extremities. Lower extremities weaker than upper extremities. The patient is mostly wheelchair bound. RECTAL/GENITOURINARY: Refused and deferred. PSYCHIATRIC: Mood and affect is intact. Assessment/Plan Assessment/Plan ASSESSMENT: 1. Supraventricular tachycardia. 2. End-stage renal disease, on hemodialysis. 3. Hypertension. 4. Anemia of chronic kidney disease. 5. Thrombocytopenia. PLAN: 1. In step-down TRUDI. 2. We will follow up with Dr. Francisco consultation from Pulmonary Critical Care, Dr. Toro from Nephrology, and Dr. Whitmore from Cardiology electrophysiology. 3. Monitor laboratory, 2D echo, and troponin. 4. Resume home medications. 5. Code status, Full Code. 6. DVT prophylaxis, heparin subcutaneous. 7. Needs EP Study and ablation at [facility] as patient was hypotensive during the episodes, call [facility] Transfer center, waiting for bed. Humberto Marie MD Jul 23, 2019 17:03
--- NOTE | 2019-07-23 19:07 | NUR ---
HAND-OFF: Report given to Kate Danielle RN,pt stable no distress presented..
--- NOTE | 2019-07-23 19:21 | NUR ---
NURSE NOTES: Received report from Deepali Mtz RN. Pt. observed resting in bed; awake and alert x3-4. Pt denies skin alterations. Pt is on tele monitor with a HR of 70 noted. Pt on 2L NC with an O2 saturation of 95% noted. Pt admits to SOB with exertion and currently at rest; Mild wheezing noted bilaterally upon auscultation. Left EJ 18G IV catheter noted which remains asymptomatic, intact and patent. Pt denies pain at this time. Left upper arm AV shunt noted; bruit and thrill present. HD scheduled for Friday, will follow up with [facility]. Pt provided with dinner compliant with diet order. Reading glasses and ixigo cell phone remain present at bedside. Pt remains resting in bed; bed remains in lowest position with safety wheels engaged, call light within easy reach, bed alarm on, side rails up x3 and bed alarm activated. Will continue plan of care. Will continue to monitor.
[2019-07-23 20:00] VITALS: BP 158/82
--- NOTE | 2019-07-23 20:20 | NUR ---
NURSE NOTES: Pt ambulated to bedside commode, black/tar like large BM noted. Will inform MD and seek order to FOB. Pt provided with materials for bed bath and oral care.Pt accepted minimal assistance but continues to refuse full skin line assessment. Pt allowed assessment and application of lotion to bilateral lower extremities but declines assessment of sacrum at this time. Wound noted to anterior right foot, pt states he has had the wound for months and is unaware of how he acquired it. Pts shoes assessed and pt encouraged to use non-slip fall socks until further assessment as the laces are applying pressure. Again, asked pt to assess sacrum, pt continues to decline. Wound remains closed, bed of wound yellow in color with no drainage noted. Optifoam applied for protection and cleansed with NS. Will update plan of care and seek wound consult. Pt provided with dinner compliant with diet order, decrease in appetite noted. Pt educated on hypoglycemia and hypoglycemic event on 07/22/19. Pt informed of s/sx of hypoglycemia and agrees to report onset of s/sx. Negotiated with pt to drink 120 mL of juice and eat a total of 50% of dinner. Pt educated on HD and plans for electrophysiology study. Pt remains resting in bed; bed remains in lowest position with safety wheels engaged, call light within easy reach, bed alarm on, side rails up x3 and bed alarm activated. Will continue plan of care. Will continue to monitor.
[2019-07-23] MEDS: Zolpidem 5mg tab ORAL PRN (20:40)
[2019-07-23] MEDS: Atorvastatin 20mg tab ORAL SCH (20:40)
--- NOTE | 2019-07-23 20:40 | NUR ---
NURSE NOTES: Pt requests Ambien for insomnia. Pt educated on medication and agrees to use call light for assistance. Pt provided Ambien as requested, no adverse effects noted. Pt remains resting in bed; bed remains in lowest position with safety wheels engaged, call light within easy reach, bed alarm on, side rails up x3 and bed alarm activated. Will continue plan of care. Will continue to monitor.
--- NOTE | 2019-07-23 21:00 | NUR ---
NURSE NOTES: Heparin held, black BM noted and platelet count decreased from 105 to 100 on 07/23/19, no other s/sx of active bleeding noted. Will notify MD. Will continue to monitor.
[2019-07-24] VITALS: BP 142/78
[2019-07-24 04:00] VITALS: BP 152/76
[2019-07-24 05:46] LABS: HEMATOCRIT 37.3 % (42.0-52.0); HEMOGLOBIN 12.5 G/DL (14.2-18.0); MEAN CORPUSCULAR VOLUME 93 FL (80-99); PLATELET COUNT 97 K/UL (150-450); RED CELL DISTRIBUTION WIDTH 12.9 % (11.6-14.8); WHITE BLOOD COUNT 8.7 K/UL (4.8-10.8)
[2019-07-24] MEDS: NovoLOG Insulin Flexpen SUBQ SCH ×5 (05:56→20:30)
[2019-07-24 06:39] LABS: ALANINE AMINOTRANSFERASE 17 U/L (12-78); ALBUMIN 3.1 G/DL (3.4-5.0); ALKALINE PHOSPHATASE 106 U/L (46-116); ANION GAP 9 mmol/L (5-15); ASPARTATE AMINO TRANSFERASE 18 U/L (15-37); BLOOD UREA NITROGEN 40 mg/dL (7-18); CALCIUM 8.3 MG/DL (8.5-10.1); CARBON DIOXIDE 32 MMOL/L (21-32); CHLORIDE 99 MMOL/L (98-107); CREATININE 12.4 MG/DL (0.55-1.30); SODIUM 139 MMOL/L (136-145)
[2019-07-24 06:51] LABS: PHOSPHORUS 3.5 MG/DL (2.5-4.9)
--- NOTE | 2019-07-24 07:25 | NUR ---
HAND-OFF: Report given to MARA Sorto. Pt remains stable at this time.
--- NOTE | 2019-07-24 07:30 | NUR ---
NURSE NOTES: Received bedside report from Kate Brooks RN. Pt. in bed, RN served set up his tray breakfast. A/O x 4. No sign of distress. On 2LPM via NC. Denies pain at present. AV shunt at left upper arm (+) for bruit/thrill. IV site at left EJ #[id number]. in placed SL. Pt. scheduled for HD today via [facility]. Bed in low position, locked. Call light within reach. Will cont. to monitor.
[2019-07-24 08:00] VITALS: BP 157/88
[2019-07-24] MEDS: Aspirin EC 81mg tab ORAL SCH (08:18)
[2019-07-24] MEDS: DULoxetine 30mg cap ORAL SCH (08:18)
[2019-07-24] MEDS: Metoprolol Succinate XL 50mg tab ORAL SCH ×2 (08:19→20:33)
[2019-07-24] MEDS: Heparin 5000 units/ml inj SUBQ SCH ×2 (08:19→20:21)
--- NOTE | 2019-07-24 10:16 | Pulmonology Progress Note ---
Assessment/Plan Assessment/Plan ASSESSMENT Likely supraventricular tachycardia with aberrancy COPD Nicotine addiction ESRD, on HD Hypotension -resolved History of hypertension Thrombocytopenia Polycystic kidney disease PLAN OF CARE TRUDI O2 HHN prn CXR negative first troponin negative, this am -o.8, no c/o CP, likely due to renal failure, no changes on tele Echo with rEF 45-50% with mild global LV hypokinesis and RVSP of 33, on BB and dialysis BP stabilized On aspirin , statin and beta-mary DVT prophylaxis with Heparin, monitor PLT count , if below 90-will stop at this time do Venous Duplex , if negative SCD per cardio likely SVT with aberrancy ; needs EP studies with ablation transfer to [facility] pending when bed available HD per filing or registry clerk BS management with [employer]ologist on smoking cessation ( 1 pk/week x yrs) Declined nicotine patch Supportive care case discussed and evaluated by supervising physician Subjective Allergies: Coded Allergies: No Known Allergies (Unverified , 07/22/19) Subjective denies CP, but reported occ SOB, HR stabilized transfer to [facility] pending Objective Last 24 Hour Vital Signs Date Time Temp Pulse Resp B/P (MAP) Pulse Ox O2 Delivery O2 Flow Rate FiO2 07/24/19 09:01 70 20 92 Nasal Cannula 2.0 28 07/24/19 08:19 65 157/88 07/24/19 08:00 Nasal Cannula 2.0 07/24/19 08:00 97.2 65 18 157/88 (111) 94 07/24/19 04:00 97.8 68 18 152/76 (101) 95 07/24/19 04:00 Nasal Cannula 2.0 07/24/19 04:00 65 07/24/19 00:00 Nasal Cannula 2.0 07/24/19 00:00 98.6 70 20 142/78 (99) 96 07/23/19 23:42 68 07/23/19 20:40 72 158/82 07/23/19 20:00 68 07/23/19 20:00 Nasal Cannula 2.0 07/23/19 20:00 98.8 72 18 158/82 (107) 95 07/23/19 18:53 63 18 91 Nasal Cannula 2.0 28 07/23/19 16:00 98.2 66 20 161/88 (112) 94 07/23/19 16:00 Nasal Cannula 2.0 07/23/19 16:00 69 07/23/19 12:00 98.0 68 20 154/84 (107) 92 07/23/19 12:00 Nasal Cannula 2.0 07/23/19 11:25 66 Intake and Output 07/23/19 07/24/19 19:00 07:00 Intake Total 480 ml 120 ml Output Total 100 ml Balance 480 ml 20 ml Intake Oral 480 ml 120 ml Output Urine Total 100 ml # Voids 1 # Bowel Movements 2 General Appearance: no acute distress HEENT: normocephalic, atraumatic, anicteric, mucous membranes moist, PERRL Respiratory/Chest: lungs clear, no respiratory distress, no accessory muscle use Cardiovascular: normal peripheral pulses, normal rate, no JVD Abdomen: normal bowel sounds, soft, non tender Extremities: no edema, pedal pulses normal Neurologic/Psychiatric: custom clothier II-XII grossly normal, no motor/sensory deficits, alert, oriented x 3, responsive Musculoskeletal: normal muscle bulk Microbiology Date/Time Source Procedure Growth Status 07/22/19 13:18 Blood Blood Culture - Preliminary NO GROWTH AFTER 24 HOURS Resulted 07/22/19 13:18 Blood Blood Culture - Preliminary NO GROWTH AFTER 24 HOURS Resulted 07/22/19 17:30 Nasal Nares MRSA Culture - Final NO METHICILLIN RESISTANT STAPH AUREUS... Complete 07/22/19 17:30 Rectum VRE Culture - Final NO VANCOMYCIN RESISTANT ENTEROCOCCUS ... Complete Laboratory Tests 07/24/19 03:45: White Blood Count 8.7#, Red Blood Count 4.00L, Hemoglobin 12.5L, Hematocrit 37.3L, Mean Corpuscular Volume 93, Mean Corpuscular Hemoglobin 31.2H, Mean Corpuscular Hemoglobin Concent 33.4, Red Cell Distribution Width 12.9, Platelet Count 97L, Mean Platelet Volume 10.5H, Neutrophils (%) (Auto) , Lymphocytes (%) (Auto) , Monocytes (%) (Auto) , Eosinophils (%) (Auto) , Basophils (%) (Auto) , Differential Total Cells Counted 100, Neutrophils % (Manual) 70, Lymphocytes % ( Manual) 22, Monocytes % (Manual) 7, Eosinophils % (Manual) 1, Basophils % ( Manual) 0, Band Neutrophils 0, Platelet Estimate DecreasedL, Platelet Morphology Normal, Red Blood Cell Morphology , Hypochromasia 1+, Sodium Level 139, Potassium Level 5.0, Chloride Level 99, Carbon Dioxide Level 32, Anion Gap 9, Blood Urea Nitrogen 40H, Creatinine 12.4H, Estimat Glomerular Filtration Rate 5.0, Glucose Level 81, Uric Acid 5.6, Calcium Level 8.3L, Phosphorus Level 3.5, Magnesium Level 2.3, Total Bilirubin 1.0, Aspartate Amino Transf (AST/SGOT ) 18, Alanine Aminotransferase (ALT/SGPT) 17, Alkaline Phosphatase 106, Troponin I 0.802H, C-Reactive Protein, Quantitative 1.6H, Pro-B-Type Natriuretic Peptide > 33289X, Total Protein 6.1L, Albumin 3.1L, Globulin 3.0, Albumin/Globulin Ratio 1.0 Current Medications Medications (Trade) Dose Ordered Sig/Cristofer Route PRN Reason Start Time Stop Time Status Last Admin Dose Admin Acetaminophen (Tylenol) 650 mg Q4H PRN ORAL fever 07/22/19 19:00 08/21/19 18:59 Albuterol/ Ipratropium (Albuterol/ Ipratropium) 3 ml Q6HRT PRN HHN dyspnea 07/22/19 19:00 07/27/19 18:59 07/22/19 21:20 Aspirin (Ecotrin) 81 mg DAILY ORAL 07/23/19 09:00 08/22/19 08:59 07/24/19 08:18 Atorvastatin Calcium (Lipitor) 20 mg BEDTIME ORAL 07/22/19 21:00 08/21/19 20:59 07/23/19 20:40 Clonidine HCl (Catapres Tab) 0.1 mg Q4H PRN ORAL For High Blood Pressure 07/22/19 19:00 08/21/19 18:59 Dextrose (Dextrose 50%) 25 ml Q30M PRN IV Hypoglycemia 07/22/19 19:00 08/21/19 18:59 Dextrose (Dextrose 50%) 50 ml Q30M PRN IV Hypoglycemia 07/22/19 19:00 08/21/19 18:59 Duloxetine HCl (Cymbalta) 30 mg DAILY ORAL 07/23/19 09:00 08/22/19 08:59 07/24/19 08:18 Gabapentin (Neurontin) 100 mg THREE TIMES A DAY ORAL 07/23/19 09:00 08/22/19 08:59 07/24/19 08:18 Heparin Sodium (Porcine) (Heparin 5000 units/ml) 5,000 units EVERY 12 HOURS SUBQ 07/22/19 21:00 08/21/19 20:59 Insulin Aspart (NovoLOG) BEFORE MEALS AND HS SUBQ 07/22/19 21:00 08/21/19 20:59 Metoprolol Succinate (Toprol XL) 50 mg Q12HR ORAL 07/23/19 09:00 08/22/19 08:59 07/24/19 08:19 Ondansetron HCl (Zofran) 4 mg Q6H PRN IVP Nausea & Vomiting 07/22/19 19:00 08/21/19 18:59 Polyethylene Glycol (Miralax) 17 gm HSPRN PRN ORAL Constipation 07/22/19 19:00 08/21/19 18:59 Zolpidem Tartrate (Ambien) 5 mg HSPRN PRN ORAL Insomnia 07/22/19 19:00 07/29/19 18:59 07/23/19 20:40 Treasure Montesinos BROKER ASSISTANT Jul 24, 2019 10:16
--- NOTE | 2019-07-24 10:32 | Nephrology Progress Note ---
Assessment/Plan Problem List: (1) ESRD (end stage renal disease) (2) Polycystic kidney disease (3) Tachycardia (4) Hypertensive kidney disease (5) Anemia in chronic kidney disease (CKD) Assessment ESRD PCKD Tachyarrythmia HTN , however Hypotensive periodically Anemia Depression Plan HD today per cardiology per orders Cardiology: Recurrent palpitations of sudden onset and termination despite Lopressor 50 bid. 12 lead ECG by Paramedics at 12:02 and 12:09 and ECG at [place] at 13:37 on all same morphology. Likely SVT with aberrancy ( RBBB, LAFB) as 12 lead in SR has identical ECG morphology. Needs EP Study and ablation at [facility] as patient was hypotensive during the episodes Subjective ROS Limited/Unobtainable: No Constitutional: Reports: malaise Objective Objective Last 24 Hour Vital Signs Date Time Temp Pulse Resp B/P (MAP) Pulse Ox O2 Delivery O2 Flow Rate FiO2 07/24/19 09:01 70 20 92 Nasal Cannula 2.0 28 07/24/19 08:19 65 157/88 07/24/19 08:00 Nasal Cannula 2.0 07/24/19 08:00 97.2 65 18 157/88 (111) 94 07/24/19 04:00 97.8 68 18 152/76 (101) 95 07/24/19 04:00 Nasal Cannula 2.0 07/24/19 04:00 65 07/24/19 00:00 Nasal Cannula 2.0 07/24/19 00:00 98.6 70 20 142/78 (99) 96 07/23/19 23:42 68 07/23/19 20:40 72 158/82 07/23/19 20:00 68 07/23/19 20:00 Nasal Cannula 2.0 07/23/19 20:00 98.8 72 18 158/82 (107) 95 07/23/19 18:53 63 18 91 Nasal Cannula 2.0 28 07/23/19 16:00 98.2 66 20 161/88 (112) 94 07/23/19 16:00 Nasal Cannula 2.0 07/23/19 16:00 69 07/23/19 12:00 98.0 68 20 154/84 (107) 92 07/23/19 12:00 Nasal Cannula 2.0 07/23/19 11:25 66 Intake and Output 07/23/19 07/24/19 19:00 07:00 Intake Total 480 ml 120 ml Output Total 100 ml Balance 480 ml 20 ml Intake Oral 480 ml 120 ml Output Urine Total 100 ml # Voids 1 # Bowel Movements 2 Laboratory Tests 07/24/19 03:45: White Blood Count 8.7#, Red Blood Count 4.00L, Hemoglobin 12.5L, Hematocrit 37.3L, Mean Corpuscular Volume 93, Mean Corpuscular Hemoglobin 31.2H, Mean Corpuscular Hemoglobin Concent 33.4, Red Cell Distribution Width 12.9, Platelet Count 97L, Mean Platelet Volume 10.5H, Neutrophils (%) (Auto) , Lymphocytes (%) (Auto) , Monocytes (%) (Auto) , Eosinophils (%) (Auto) , Basophils (%) (Auto) , Differential Total Cells Counted 100, Neutrophils % (Manual) 70, Lymphocytes % ( Manual) 22, Monocytes % (Manual) 7, Eosinophils % (Manual) 1, Basophils % ( Manual) 0, Band Neutrophils 0, Platelet Estimate DecreasedL, Platelet Morphology Normal, Red Blood Cell Morphology , Hypochromasia 1+, Sodium Level 139, Potassium Level 5.0, Chloride Level 99, Carbon Dioxide Level 32, Anion Gap 9, Blood Urea Nitrogen 40H, Creatinine 12.4H, Estimat Glomerular Filtration Rate 5.0, Glucose Level 81, Uric Acid 5.6, Calcium Level 8.3L, Phosphorus Level 3.5, Magnesium Level 2.3, Total Bilirubin 1.0, Aspartate Amino Transf (AST/SGOT ) 18, Alanine Aminotransferase (ALT/SGPT) 17, Alkaline Phosphatase 106, Troponin I 0.802H, C-Reactive Protein, Quantitative 1.6H, Pro-B-Type Natriuretic Peptide > 22968Q, Total Protein 6.1L, Albumin 3.1L, Globulin 3.0, Albumin/Globulin Ratio 1.0 Height (Feet): 6 Height (Inches): 5.00 Weight (Pounds): 167 General Appearance: no apparent distress, lethargic Cardiovascular: normal rate Respiratory/Chest: decreased breath sounds Abdomen: soft Darron Toro MD Jul 24, 2019 10:32
[2019-07-24 12:00] VITALS: BP 179/95
--- NOTE | 2019-07-24 12:03 | NUR ---
NURSE NOTES: After several f/u calls to [facility] finally HD dialysis nurse showed up. Pt. is happy now. Pt. start to get anxious, explained to pt. multiple times that he get dialysis today.
--- NOTE | 2019-07-24 12:10 | NUR ---
NURSE NOTES: Noted B/P elevated but currently having dialysis.
--- NOTE | 2019-07-24 14:13 | Cardiac Electrophysiology PN ---
Assessment/Plan Assessment/Plan 1. Recurrent palpitation/SVT. The patient states that he has had palpitation off and on over the last year, but never this severe and never lasted this long. EKG showed wide complex tachycardia with no discrete P-wave with right bundle-branch block and left axis deviation morphology. Likely SVT with aberrancy, right bundle-branch block and left anterior hemiblock morphology. This happened while the patient is on metoprolol 50 mg b.i.d. The best option at this point would be to undergo electrophysiology study for further evaluation of his arrhythmia. This will be discussed with the patient and Dr. Marie. Transfer the patient to [facility] for further evaluation. 2. Hypertension on Toprol 50 mg b.i.d. as well p.r.n. clonidine. 3. End-stage renal disease, on hemodialysis. 4. Hyperlipidemia on Lipitor. DW [facility] transfer CTR. Awaiting bed over the weekend for EPS on Friday Subjective Subjective Recurrent palpitations of sudden onset and termination despite Lopressor 50 bid. 12 lead ECG by Paramedics at 12:02 and 12:09 and ECG at [place] at 13:37 on all same morphology. Likely SVT with aberrancy ( RBBB, LAFB) as 12 lead in SR has identical ECG morphology. Awaiting EP Study and ablation at [facility]. No bed yet per transfer CTR Objective Last 24 Hour Vital Signs Date Time Temp Pulse Resp B/P (MAP) Pulse Ox O2 Delivery O2 Flow Rate FiO2 07/24/19 12:00 97.6 62 18 179/95 (123) 95 07/24/19 12:00 Nasal Cannula 2.0 07/24/19 11:40 69 07/24/19 09:01 70 20 92 Nasal Cannula 2.0 28 07/24/19 08:19 65 157/88 07/24/19 08:00 Nasal Cannula 2.0 07/24/19 08:00 97.2 65 18 157/88 (111) 94 07/24/19 07:53 66 07/24/19 04:00 97.8 68 18 152/76 (101) 95 07/24/19 04:00 Nasal Cannula 2.0 07/24/19 04:00 65 07/24/19 00:00 Nasal Cannula 2.0 07/24/19 00:00 98.6 70 20 142/78 (99) 96 07/23/19 23:42 68 07/23/19 20:40 72 158/82 07/23/19 20:00 68 07/23/19 20:00 Nasal Cannula 2.0 07/23/19 20:00 98.8 72 18 158/82 (107) 95 07/23/19 18:53 63 18 91 Nasal Cannula 2.0 28 07/23/19 16:00 98.2 66 20 161/88 (112) 94 07/23/19 16:00 Nasal Cannula 2.0 07/23/19 16:00 69 Intake and Output 07/23/19 07/24/19 19:00 07:00 Intake Total 480 ml 120 ml Output Total 100 ml Balance 480 ml 20 ml Intake Oral 480 ml 120 ml Output Urine Total 100 ml # Voids 1 # Bowel Movements 2 Laboratory Tests Test 07/24/19 03:45 White Blood Count 8.7 K/UL (4.8-10.8) # Red Blood Count 4.00 M/UL (4.70-6.10) L Hemoglobin 12.5 G/DL (14.2-18.0) L Hematocrit 37.3 % (42.0-52.0) L Mean Corpuscular Volume 93 FL (80-99) Mean Corpuscular Hemoglobin 31.2 PG (27.0-31.0) H Mean Corpuscular Hemoglobin Concent 33.4 G/DL (32.0-36.0) Red Cell Distribution Width 12.9 % (11.6-14.8) Platelet Count 97 K/UL (150-450) L Mean Platelet Volume 10.5 FL (6.5-10.1) H Neutrophils (%) (Auto) % (45.0-75.0) Lymphocytes (%) (Auto) % (20.0-45.0) Monocytes (%) (Auto) % (1.0-10.0) Eosinophils (%) (Auto) % (0.0-3.0) Basophils (%) (Auto) % (0.0-2.0) Differential Total Cells Counted 100 Neutrophils % (Manual) 70 % (45-75) Lymphocytes % (Manual) 22 % (20-45) Monocytes % (Manual) 7 % (1-10) Eosinophils % (Manual) 1 % (0-3) Basophils % (Manual) 0 % (0-2) Band Neutrophils 0 % (0-8) Platelet Estimate Decreased L Platelet Morphology Normal Red Blood Cell Morphology Hypochromasia 1+ Sodium Level 139 MMOL/L (136-145) Potassium Level 5.0 MMOL/L (3.5-5.1) Chloride Level 99 MMOL/L (98-107) Carbon Dioxide Level 32 MMOL/L (21-32) Anion Gap 9 mmol/L (5-15) Blood Urea Nitrogen 40 mg/dL (7-18) H Creatinine 12.4 MG/DL (0.55-1.30) H Estimat Glomerular Filtration Rate 5.0 mL/min (>60) Glucose Level 81 MG/DL (74-106) Uric Acid 5.6 MG/DL (2.6-7.2) Calcium Level 8.3 MG/DL (8.5-10.1) L Phosphorus Level 3.5 MG/DL (2.5-4.9) Magnesium Level 2.3 MG/DL (1.8-2.4) Total Bilirubin 1.0 MG/DL (0.2-1.0) Aspartate Amino Transf (AST/SGOT) 18 U/L (15-37) Alanine Aminotransferase (ALT/SGPT) 17 U/L (12-78) Alkaline Phosphatase 106 U/L (46-116) Troponin I 0.802 ng/mL (0.000-0.056) C-Reactive Protein, Quantitative 1.6 mg/dL (0.00-0.90) H Pro-B-Type Natriuretic Peptide > 34336 pg/mL (0-125) H Total Protein 6.1 G/DL (6.4-8.2) L Albumin 3.1 G/DL (3.4-5.0) L Globulin 3.0 g/dL Albumin/Globulin Ratio 1.0 (1.0-2.7) Microbiology Date/Time Source Procedure Growth Status 07/22/19 13:18 Blood Blood Culture - Preliminary NO GROWTH AFTER 24 HOURS Resulted 07/22/19 13:18 Blood Blood Culture - Preliminary NO GROWTH AFTER 24 HOURS Resulted 07/22/19 17:30 Nasal Nares MRSA Culture - Final NO METHICILLIN RESISTANT STAPH AUREUS... Complete 07/22/19 17:30 Rectum VRE Culture - Final NO VANCOMYCIN RESISTANT ENTEROCOCCUS ... Complete Objective HEAD AND NECK: No jugular venous distention. LUNGS: Clear. CARDIOVASCULAR: Regular S1 and S2 with no gallop or murmur. ABDOMEN: Soft. EXTREMITIES: No pitting edema. Gerard Whitmore MD Jul 24, 2019 14:13
--- NOTE | 2019-07-24 14:44 | NUR ---
NURSE NOTES: Hand over care to Travis TERRY. Pt. remain stable. Dialysis on going.
--- NOTE | 2019-07-24 14:55 | NUR ---
NURSE NOTES: Report received from MARA Sorto. Pt is awake and alert, receiving dialysis in bed. Forgetful at times. Sinus rhythm with BBB noted. On 2L N/C. No respiratory distress noted. Urinal at bedside. Left AV shunt for HD noted. Left EJ G18 in place and asymptomatic. Bed in lowest position. Side rails up x3 Call light within reach. Will continue plan of care.
--- NOTE | 2019-07-24 15:02 | NUR ---
NURSE NOTES: PRN Clonidine 0.1mg given for high BP 207/94. Will continue to monitor.
--- NOTE | 2019-07-24 15:10 | NUR ---
NURSE NOTES: Hemodialysis done at bedside. 2L out as per dialysis nurseShukri.
--- NOTE | 2019-07-24 15:31 | NUR ---
NURSE NOTES: Pt wants to leave AMA. Ex- will come and pick him up around [address] patient[address] Bowers is here and notified him of his will. Will call air conditioning supervisor for his diana in a safe and check other belongings.
--- NOTE | 2019-07-24 15:32 | Internal Med Progress Note ---
Subjective Date of Service: Jul 24, 2019 Physician Name Luis Bowers Attending Physician Humberto Marie MD Current Medications Medications (Trade) Dose Ordered Sig/Cristofer Route PRN Reason Start Time Stop Time Status Last Admin Dose Admin Acetaminophen (Tylenol) 650 mg Q4H PRN ORAL fever 07/22/19 19:00 08/21/19 18:59 Albuterol/ Ipratropium (Albuterol/ Ipratropium) 3 ml Q6HRT PRN HHN dyspnea 07/22/19 19:00 07/27/19 18:59 07/22/19 21:20 Aspirin (Ecotrin) 81 mg DAILY ORAL 07/23/19 09:00 08/22/19 08:59 07/24/19 08:18 Atorvastatin Calcium (Lipitor) 20 mg BEDTIME ORAL 07/22/19 21:00 08/21/19 20:59 07/23/19 20:40 Clonidine HCl (Catapres Tab) 0.1 mg Q4H PRN ORAL For High Blood Pressure 07/22/19 19:00 08/21/19 18:59 07/24/19 15:02 Dextrose (Dextrose 50%) 25 ml Q30M PRN IV Hypoglycemia 07/22/19 19:00 08/21/19 18:59 Dextrose (Dextrose 50%) 50 ml Q30M PRN IV Hypoglycemia 07/22/19 19:00 08/21/19 18:59 Duloxetine HCl (Cymbalta) 30 mg DAILY ORAL 07/23/19 09:00 08/22/19 08:59 07/24/19 08:18 Gabapentin (Neurontin) 100 mg THREE TIMES A DAY ORAL 07/23/19 09:00 08/22/19 08:59 07/24/19 08:18 Heparin Sodium (Porcine) (Heparin 5000 units/ml) 5,000 units EVERY 12 HOURS SUBQ 07/22/19 21:00 08/21/19 20:59 Insulin Aspart (NovoLOG) BEFORE MEALS AND HS SUBQ 07/22/19 21:00 08/21/19 20:59 Metoprolol Succinate (Toprol XL) 50 mg Q12HR ORAL 07/23/19 09:00 08/22/19 08:59 07/24/19 08:19 Ondansetron HCl (Zofran) 4 mg Q6H PRN IVP Nausea & Vomiting 07/22/19 19:00 08/21/19 18:59 Polyethylene Glycol (Miralax) 17 gm HSPRN PRN ORAL Constipation 07/22/19 19:00 08/21/19 18:59 Zolpidem Tartrate (Ambien) 5 mg HSPRN PRN ORAL Insomnia 07/22/19 19:00 07/29/19 18:59 07/23/19 20:40 Allergies: Coded Allergies: No Known Allergies (Unverified , 07/22/19) ROS Limited/Unobtainable: No Constitutional: Reports: no symptoms HEENT: Reports: no symptoms Cardiovascular: Reports: no symptoms Respiratory: Reports: no symptoms Gastrointestinal/Abdominal: Reports: no symptoms Genitourinary: Reports: no symptoms Neurologic/Psychiatric: Reports: no symptoms Subjective 63 YO M admitted with palpitations. Now supraventricular tachycardia. [facility] for Int Med - Dr Marie. TRUDI Objective Last Vital Signs Date Time Temp Pulse Resp B/P (MAP) Pulse Ox O2 Delivery O2 Flow Rate FiO2 07/24/19 15:02 207/94 07/24/19 15:00 Nasal Cannula 2.0 07/24/19 12:00 97.6 62 18 95 07/24/19 09:01 28 Laboratory Tests Test 07/24/19 03:45 White Blood Count 8.7 K/UL (4.8-10.8) # Red Blood Count 4.00 M/UL (4.70-6.10) L Hemoglobin 12.5 G/DL (14.2-18.0) L Hematocrit 37.3 % (42.0-52.0) L Mean Corpuscular Volume 93 FL (80-99) Mean Corpuscular Hemoglobin 31.2 PG (27.0-31.0) H Mean Corpuscular Hemoglobin Concent 33.4 G/DL (32.0-36.0) Red Cell Distribution Width 12.9 % (11.6-14.8) Platelet Count 97 K/UL (150-450) L Mean Platelet Volume 10.5 FL (6.5-10.1) H Neutrophils (%) (Auto) % (45.0-75.0) Lymphocytes (%) (Auto) % (20.0-45.0) Monocytes (%) (Auto) % (1.0-10.0) Eosinophils (%) (Auto) % (0.0-3.0) Basophils (%) (Auto) % (0.0-2.0) Differential Total Cells Counted 100 Neutrophils % (Manual) 70 % (45-75) Lymphocytes % (Manual) 22 % (20-45) Monocytes % (Manual) 7 % (1-10) Eosinophils % (Manual) 1 % (0-3) Basophils % (Manual) 0 % (0-2) Band Neutrophils 0 % (0-8) Platelet Estimate Decreased L Platelet Morphology Normal Red Blood Cell Morphology Hypochromasia 1+ Sodium Level 139 MMOL/L (136-145) Potassium Level 5.0 MMOL/L (3.5-5.1) Chloride Level 99 MMOL/L (98-107) Carbon Dioxide Level 32 MMOL/L (21-32) Anion Gap 9 mmol/L (5-15) Blood Urea Nitrogen 40 mg/dL (7-18) H Creatinine 12.4 MG/DL (0.55-1.30) H Estimat Glomerular Filtration Rate 5.0 mL/min (>60) Glucose Level 81 MG/DL (74-106) Uric Acid 5.6 MG/DL (2.6-7.2) Calcium Level 8.3 MG/DL (8.5-10.1) L Phosphorus Level 3.5 MG/DL (2.5-4.9) Magnesium Level 2.3 MG/DL (1.8-2.4) Total Bilirubin 1.0 MG/DL (0.2-1.0) Aspartate Amino Transf (AST/SGOT) 18 U/L (15-37) Alanine Aminotransferase (ALT/SGPT) 17 U/L (12-78) Alkaline Phosphatase 106 U/L (46-116) Troponin I 0.802 ng/mL (0.000-0.056) C-Reactive Protein, Quantitative 1.6 mg/dL (0.00-0.90) H Pro-B-Type Natriuretic Peptide > 47618 pg/mL (0-125) H Total Protein 6.1 G/DL (6.4-8.2) L Albumin 3.1 G/DL (3.4-5.0) L Globulin 3.0 g/dL Albumin/Globulin Ratio 1.0 (1.0-2.7) Microbiology Date/Time Source Procedure Growth Status 2/6/20 13:18 Blood Blood Culture - Preliminary NO GROWTH AFTER 24 HOURS Resulted 07/22/19 13:18 Blood Blood Culture - Preliminary NO GROWTH AFTER 24 HOURS Resulted 07/22/19 17:30 Nasal Nares MRSA Culture - Final NO METHICILLIN RESISTANT STAPH AUREUS... Complete 07/22/19 17:30 Rectum VRE Culture - Final NO VANCOMYCIN RESISTANT ENTEROCOCCUS ... Complete Intake and Output 07/23/19 07/24/19 19:00 07:00 Intake Total 480 ml 120 ml Output Total 100 ml Balance 480 ml 20 ml Intake Oral 480 ml 120 ml Output Urine Total 100 ml # Voids 1 # Bowel Movements 2 Objective PHYSICAL EXAMINATION: GENERAL: The patient is awake and responsive, in no acute distress. HEAD AND NECK: Pupils are equal and reactive to light. Extraocular muscles intact. Neck was supple. No JVD. LUNGS: Good air entry. No wheeze or rhonchi. Decreased in the bases. HEART: S1, S2. Tachycardic. No murmur or gallops. ABDOMEN: Soft, nondistended, and nontender. Positive bowel sounds. EXTREMITIES: No cyanosis, clubbing, or edema. Left upper extremity AV fistula was noted functional. NEUROLOGIC: Cranial nerves II to XII grossly intact. The patient is moving all the extremities. Lower extremities weaker than upper extremities. The patient is mostly wheelchair bound. RECTAL/GENITOURINARY: Refused and deferred. PSYCHIATRIC: Mood and affect is intact. Assessment/Plan Assessment/Plan ASSESSMENT: 1. Supraventricular tachycardia. 2. End-stage renal disease, on hemodialysis. 3. Hypertension. 4. Anemia of chronic kidney disease. 5. Thrombocytopenia. PLAN: 1. Admit the patient to step-down TRUDI. 2. We will follow up with Dr. Francisco consultation from Pulmonary Critical Care, Dr. Toro from Nephrology, and Dr. Whitmore from Cardiology electrophysiology. 3. Monitor laboratory, 2D echo, and troponin. 4. Resume home medications. 5. Code status, Full Code. 6. DVT prophylaxis, heparin subcutaneous. 7. Hemodialysis 07/24/19 8. PATIENT THREATENING TO LEAVE AGAINST MEDICAL ADVISE Luis Bowers MD Jul 24, 2019 15:32
--- NOTE | 2019-07-24 16:01 | Diagnostic Imaging Report ---
EXAM: US Duplex Bilateral Lower Extremity Veins CLINICAL HISTORY: SOB TECHNIQUE: Real-time duplex ultrasound scan of the bilateral lower extremity veins integrating B-mode two-dimensional vascular structure, Doppler spectral analysis, color flow Doppler imaging and compression. COMPARISON: No relevant prior studies available. FINDINGS: Right deep veins: Unremarkable. No DVT in the right common femoral, femoral, proximal deep femoral or popliteal veins. The veins demonstrate normal color flow, are normally compressible, with normal phasic flow and/or augmentation response. Right superficial veins: Unremarkable. No thrombus in the visualized right great saphenous vein. Left deep veins: Unremarkable. No DVT in the left common femoral, femoral, proximal deep femoral or popliteal veins. The veins demonstrate normal color flow, are normally compressible, with normal phasic flow and/or augmentation response. Left superficial veins: Unremarkable. No thrombus in the visualized left great saphenous vein. Soft tissues: No acute findings. IMPRESSION: No DVT demonstrated.
[2019-07-24 16:23] VITALS: BP 121/57
--- NOTE | 2019-07-24 16:34 | NUR ---
NURSE NOTES: Ex- arrived, arguing with the patient. Patient decided not to leave AMA and stay in [place] until he gets transferred to [facility]. Notified Dr Bowers and the supervisor billposting, Kae. BP rechecked. 121/57. BS 80. Pt is calm and resting in bed. Will continue to monitor.
--- NOTE | 2019-07-24 18:00 | NUR ---
NURSE NOTES: Pt stated that he does not have appetite and refused to eat dinner. Tray left on the table. Pt is resting in bed, watching TV.
--- NOTE | 2019-07-24 19:20 | NUR ---
HAND-OFF: Report given to Derek Sena RN.
--- NOTE | 2019-07-24 19:20 | NUR ---
NURSE NOTES: Pt report received from REECE MENDEZ RN. pt remains stable. pt is alert and oriented times 4. pt is on monitor car operator showing NSR, no cardiac distress noted. pt is on 2 L NC able to sat at 99%, no signs symptoms resp distress noted. pt bed is low, locked, armed, call light within reach, bed rails up times 3. will follow plan of care.
[2019-07-24 20:00] VITALS: BP 154/72
[2019-07-24] MEDS: Atorvastatin 20mg tab ORAL SCH (20:33)
[2019-07-25] VITALS: BP 132/74
--- NOTE | 2019-07-25 03:18 | NUR ---
NURSE NOTES: Rajan from [facility] called to ask about status of the pt, current heart rhythm, and if any PO anti arithmetic Meds have been given. She also states there are still no beds available at [facility].
[2019-07-25 04:00] VITALS: BP 129/76
[2019-07-25 05:44] LABS: HEMATOCRIT 41.2 % (42.0-52.0); HEMOGLOBIN 13.4 G/DL (14.2-18.0); MEAN CORPUSCULAR VOLUME 94 FL (80-99); PLATELET COUNT 80 K/UL (150-450); RED BLOOD COUNT 4.36 M/UL (4.70-6.10); WHITE BLOOD COUNT 6.3 K/UL (4.8-10.8)
[2019-07-25] MEDS: NovoLOG Insulin Flexpen SUBQ SCH ×4 (05:47→20:58)
[2019-07-25 06:46] LABS: ANION GAP 7 mmol/L (5-15); BLOOD UREA NITROGEN 24 mg/dL (7-18); CALCIUM 8.3 MG/DL (8.5-10.1); CARBON DIOXIDE 35 MMOL/L (21-32); CHLORIDE 101 MMOL/L (98-107); CREATININE 9.5 MG/DL (0.55-1.30); POTASSIUM 4.2 MMOL/L (3.5-5.1); SODIUM 142 MMOL/L (136-145)
--- NOTE | 2019-07-25 07:00 | NUR ---
HAND-OFF: Report given to DUONG Ballard RN. Pt remains stable.
--- NOTE | 2019-07-25 07:00 | NUR ---
received pt sleepy but arousable ,orientedx4 ,skin warm and dry to touch ,on o2 2l nc no resp distress
[2019-07-25 08:00] VITALS: BP 155/92
[2019-07-25] MEDS: Metoprolol Succinate XL 50mg tab ORAL SCH ×2 (08:31→20:57)
[2019-07-25] MEDS: DULoxetine 30mg cap ORAL SCH (08:31)
[2019-07-25] MEDS: Aspirin EC 81mg tab ORAL SCH (08:31)
[2019-07-25] MEDS: Heparin 5000 units/ml inj SUBQ SCH (08:32)
--- NOTE | 2019-07-25 09:00 | NUR ---
platelets 80 heparin held ,stefania WOMACK NOTEFIED, [place] HEPARIN TO BE HELD TODAY
--- NOTE | 2019-07-25 09:49 | Pulmonology Progress Note ---
Assessment/Plan Assessment/Plan ASSESSMENT Likely supraventricular tachycardia with aberrancy COPD Nicotine addiction ESRD, on HD Hypotension -resolved History of hypertension Thrombocytopenia Polycystic kidney disease PLAN OF CARE TRUDI O2 HHN prn CXR negative first troponin negative, this am -o.8, no c/o CP, likely due to renal failure, no changes on tele Echo with rEF 45-50% with mild global LV hypokinesis and RVSP of 33, on BB and dialysis BP stabilized on aspirin , statin and beta-mary DVT prophylaxis with Heparin, monitor PLT count , down to 80 off heparin venous Duplex BLE - negative start on SCD per cardio likely SVT with aberrancy ; needs EP studies with ablation transfer to [facility] pending when bed available HD per denial management representative BS management with [employer] student assistance counselor on smoking cessation ( 1 pk/week x yrs) declined nicotine patch supportive care case discussed and evaluated by supervising physician Subjective Allergies: Coded Allergies: No Known Allergies (Unverified , 07/22/19) Subjective denies CP, but reported occ SOB, HR stabilized transfer to [facility] pending PLT down to 80, heparin SQ stopped Objective Last 24 Hour Vital Signs Date Time Temp Pulse Resp B/P (MAP) Pulse Ox O2 Delivery O2 Flow Rate FiO2 07/25/19 08:31 71 155/92 07/25/19 08:00 65 07/25/19 08:00 98.3 71 20 155/92 (113) 100 07/25/19 07:55 95 Nasal Cannula 2.0 28 07/25/19 07:55 69 16 95 Nasal Cannula 2.0 28 07/25/19 04:00 98.0 67 20 129/76 (93) 99 07/25/19 04:00 Nasal Cannula 2.0 07/25/19 04:00 64 07/25/19 00:00 Nasal Cannula 2.0 07/25/19 00:00 98.4 70 17 132/74 (93) 99 07/25/19 00:00 61 07/24/19 20:33 67 157/79 07/24/19 20:14 72 20 91 Nasal Cannula 2.0 28 07/24/19 20:00 Nasal Cannula 2.0 07/24/19 20:00 98.1 67 17 154/72 (99) 95 07/24/19 20:00 64 07/24/19 16:23 97.2 68 17 121/57 (78) 95 07/24/19 16:19 Nasal Cannula 2.0 28 07/24/19 16:19 68 07/24/19 15:02 207/94 07/24/19 15:00 Nasal Cannula 2.0 07/24/19 12:00 97.6 62 18 179/95 (123) 95 07/24/19 12:00 Nasal Cannula 2.0 07/24/19 11:40 69 Intake and Output 07/24/19 07/25/19 19:00 07:00 Intake Total 2000 ml Output Total 100 ml Balance 1900 ml Hemodialysis 2000 ml Output Urine Total 100 ml # Voids 1 Objective General Appearance: no acute distress HEENT: normocephalic, atraumatic, anicteric, mucous membranes moist, PERRL Respiratory/Chest: lungs clear, no respiratory distress, no accessory muscle use Cardiovascular: normal peripheral pulses, normal rate, no JVD Abdomen: normal bowel sounds, soft, non tender Extremities: no edema, pedal pulses normal Neurologic/Psychiatric: documentation spec II-XII grossly normal, no motor/sensory deficits, alert, oriented x 3, responsive Musculoskeletal: normal muscle bulk Microbiology Date/Time Source Procedure Growth Status 07/22/19 13:18 Blood Blood Culture - Preliminary NO GROWTH AFTER 48 HOURS Resulted 07/22/19 13:18 Blood Blood Culture - Preliminary NO GROWTH AFTER 48 HOURS Resulted 07/22/19 17:30 Nasal Nares MRSA Culture - Final NO METHICILLIN RESISTANT STAPH AUREUS... Complete 07/22/19 17:30 Rectum VRE Culture - Final NO VANCOMYCIN RESISTANT ENTEROCOCCUS ... Complete Laboratory Tests 07/25/19 03:50: White Blood Count 6.3, Red Blood Count 4.36L, Hemoglobin 13.4L, Hematocrit 41.2L , Mean Corpuscular Volume 94, Mean Corpuscular Hemoglobin 30.8, Mean Corpuscular Hemoglobin Concent 32.6, Red Cell Distribution Width 13.0, Platelet Count 80L, Mean Platelet Volume 7.9, Neutrophils (%) (Auto) , Lymphocytes (%) ( Auto) , Monocytes (%) (Auto) , Eosinophils (%) (Auto) , Basophils (%) (Auto) , Differential Total Cells Counted 100, Neutrophils % (Manual) 50, Lymphocytes % ( Manual) 43, Monocytes % (Manual) 5, Eosinophils % (Manual) 2, Basophils % ( Manual) 0, Band Neutrophils 0, Platelet Estimate DecreasedL, Platelet Morphology Normal, Red Blood Cell Morphology Normal, Sodium Level 142, Potassium Level 4.2, Chloride Level 101, Carbon Dioxide Level 35H, Anion Gap 7, Blood Urea Nitrogen 24H, Creatinine 9.5H, Estimat Glomerular Filtration Rate 6.8 , Glucose Level 92, Calcium Level 8.3L Current Medications Medications (Trade) Dose Ordered Sig/Cristofer Route PRN Reason Start Time Stop Time Status Last Admin Dose Admin Acetaminophen (Tylenol) 650 mg Q4H PRN ORAL fever 07/22/19 19:00 08/21/19 18:59 Albuterol/ Ipratropium (Albuterol/ Ipratropium) 3 ml Q6HRT PRN HHN dyspnea 07/22/19 19:00 07/27/19 18:59 07/22/19 21:20 Aspirin (Ecotrin) 81 mg DAILY ORAL 07/23/19 09:00 08/22/19 08:59 07/25/19 08:31 Atorvastatin Calcium (Lipitor) 20 mg BEDTIME ORAL 07/22/19 21:00 08/21/19 20:59 07/24/19 20:33 Clonidine HCl (Catapres Tab) 0.1 mg Q4H PRN ORAL For High Blood Pressure 07/22/19 19:00 08/21/19 18:59 07/24/19 15:02 Dextrose (Dextrose 50%) 25 ml Q30M PRN IV Hypoglycemia 07/22/19 19:00 08/21/19 18:59 Dextrose (Dextrose 50%) 50 ml Q30M PRN IV Hypoglycemia 07/22/19 19:00 08/21/19 18:59 Duloxetine HCl (Cymbalta) 30 mg DAILY ORAL 07/23/19 09:00 08/22/19 08:59 07/25/19 08:31 Gabapentin (Neurontin) 100 mg THREE TIMES A DAY ORAL 07/23/19 09:00 08/22/19 08:59 07/25/19 08:31 Heparin Sodium (Porcine) (Heparin 5000 units/ml) 5,000 units EVERY 12 HOURS SUBQ 07/22/19 21:00 08/21/19 20:59 Insulin Aspart (NovoLOG) BEFORE MEALS AND HS SUBQ 07/22/19 21:00 08/21/19 20:59 Metoprolol Succinate (Toprol XL) 50 mg Q12HR ORAL 07/23/19 09:00 08/22/19 08:59 07/25/19 08:31 Ondansetron HCl (Zofran) 4 mg Q6H PRN IVP Nausea & Vomiting 07/22/19 19:00 08/21/19 18:59 Polyethylene Glycol (Miralax) 17 gm HSPRN PRN ORAL Constipation 07/22/19 19:00 08/21/19 18:59 Zolpidem Tartrate (Ambien) 5 mg HSPRN PRN ORAL Insomnia 07/22/19 19:00 07/29/19 18:59 07/23/19 20:40 Treasure Montesinos TOP TRIMMER Jul 25, 2019 09:49
[2019-07-25] MEDS ORDERED: Albuterol/Ipratropium 3ml neb HHN PRN (10:00)
[2019-07-25 12:00] VITALS: BP 145/94
--- NOTE | 2019-07-25 12:30 | Nephrology Progress Note ---
Assessment/Plan Problem List: (1) ESRD (end stage renal disease) (2) Polycystic kidney disease (3) Tachycardia (4) Hypertensive kidney disease (5) Anemia in chronic kidney disease (CKD) Assessment ESRD PCKD Tachyarrythmia HTN , however Hypotensive periodically Anemia Depression Plan HD 07/24 next 07/26 per cardiology per orders Cardiology: Recurrent palpitations of sudden onset and termination despite Lopressor 50 bid. 12 lead ECG by Paramedics at 12:02 and 12:09 and ECG at [facility] at 13:37 on all same morphology. Likely SVT with aberrancy ( RBBB, LAFB) as 12 lead in SR has identical ECG morphology. Needs EP Study and ablation at [facility] as patient was hypotensive during the episodes Subjective ROS Limited/Unobtainable: No Constitutional: Reports: malaise Objective Objective Last 24 Hour Vital Signs Date Time Temp Pulse Resp B/P (MAP) Pulse Ox O2 Delivery O2 Flow Rate FiO2 07/25/19 12:00 Nasal Cannula 2.0 07/25/19 08:31 71 155/92 07/25/19 08:00 65 07/25/19 08:00 Nasal Cannula 2.0 07/25/19 08:00 98.3 71 20 155/92 (113) 100 07/25/19 07:55 95 Nasal Cannula 2.0 28 07/25/19 07:55 69 16 95 Nasal Cannula 2.0 28 07/25/19 04:00 98.0 67 20 129/76 (93) 99 07/25/19 04:00 Nasal Cannula 2.0 07/25/19 04:00 64 07/25/19 00:00 Nasal Cannula 2.0 07/25/19 00:00 98.4 70 17 132/74 (93) 99 07/25/19 00:00 61 07/24/19 20:33 67 157/79 07/24/19 20:14 72 20 91 Nasal Cannula 2.0 28 07/24/19 20:00 Nasal Cannula 2.0 07/24/19 20:00 98.1 67 17 154/72 (99) 95 07/24/19 20:00 64 07/24/19 16:23 97.2 68 17 121/57 (78) 95 07/24/19 16:19 Nasal Cannula 2.0 28 07/24/19 16:19 68 07/24/19 15:02 207/94 07/24/19 15:00 Nasal Cannula 2.0 Intake and Output 07/24/19 07/25/19 19:00 07:00 Intake Total 2000 ml Output Total 100 ml Balance 1900 ml Hemodialysis 2000 ml Output Urine Total 100 ml # Voids 1 Laboratory Tests 07/25/19 03:50: White Blood Count 6.3, Red Blood Count 4.36L, Hemoglobin 13.4L, Hematocrit 41.2L , Mean Corpuscular Volume 94, Mean Corpuscular Hemoglobin 30.8, Mean Corpuscular Hemoglobin Concent 32.6, Red Cell Distribution Width 13.0, Platelet Count 80L, Mean Platelet Volume 7.9, Neutrophils (%) (Auto) , Lymphocytes (%) ( Auto) , Monocytes (%) (Auto) , Eosinophils (%) (Auto) , Basophils (%) (Auto) , Differential Total Cells Counted 100, Neutrophils % (Manual) 50, Lymphocytes % ( Manual) 43, Monocytes % (Manual) 5, Eosinophils % (Manual) 2, Basophils % ( Manual) 0, Band Neutrophils 0, Platelet Estimate DecreasedL, Platelet Morphology Normal, Red Blood Cell Morphology Normal, Sodium Level 142, Potassium Level 4.2, Chloride Level 101, Carbon Dioxide Level 35H, Anion Gap 7, Blood Urea Nitrogen 24H, Creatinine 9.5H, Estimat Glomerular Filtration Rate 6.8 , Glucose Level 92, Calcium Level 8.3L Height (Feet): 6 Height (Inches): 5.00 Weight (Pounds): 165 General Appearance: no apparent distress Cardiovascular: normal rate Respiratory/Chest: lungs clear Abdomen: soft Darron Toro MD Jul 25, 2019 12:30
--- NOTE | 2019-07-25 14:08 | Internal Med Progress Note ---
Subjective Date of Service: Jul 25, 2019 Physician Name Luis Bowers Attending Physician Humberto Marie MD Current Medications Medications (Trade) Dose Ordered Sig/Cristofer Route PRN Reason Start Time Stop Time Status Last Admin Dose Admin Acetaminophen (Tylenol) 650 mg Q4H PRN ORAL fever 07/22/19 19:00 08/21/19 18:59 Albuterol/ Ipratropium (Albuterol/ Ipratropium) 3 ml Q6H PRN HHN dyspnea 07/25/19 10:00 07/30/19 09:59 Aspirin (Ecotrin) 81 mg DAILY ORAL 07/23/19 09:00 08/22/19 08:59 07/25/19 08:31 Atorvastatin Calcium (Lipitor) 20 mg BEDTIME ORAL 07/22/19 21:00 08/21/19 20:59 07/24/19 20:33 Clonidine HCl (Catapres Tab) 0.1 mg Q4H PRN ORAL For High Blood Pressure 07/22/19 19:00 08/21/19 18:59 07/24/19 15:02 Dextrose (Dextrose 50%) 25 ml Q30M PRN IV Hypoglycemia 07/22/19 19:00 08/21/19 18:59 Dextrose (Dextrose 50%) 50 ml Q30M PRN IV Hypoglycemia 07/22/19 19:00 08/21/19 18:59 Duloxetine HCl (Cymbalta) 30 mg DAILY ORAL 07/23/19 09:00 08/22/19 08:59 07/25/19 08:31 Gabapentin (Neurontin) 100 mg THREE TIMES A DAY ORAL 07/23/19 09:00 08/22/19 08:59 07/25/19 12:37 Insulin Aspart (NovoLOG) BEFORE MEALS AND HS SUBQ 07/22/19 21:00 08/21/19 20:59 Metoprolol Succinate (Toprol XL) 50 mg Q12HR ORAL 07/23/19 09:00 08/22/19 08:59 07/25/19 08:31 Ondansetron HCl (Zofran) 4 mg Q6H PRN IVP Nausea & Vomiting 07/22/19 19:00 08/21/19 18:59 Polyethylene Glycol (Miralax) 17 gm HSPRN PRN ORAL Constipation 07/22/19 19:00 08/21/19 18:59 Zolpidem Tartrate (Ambien) 5 mg HSPRN PRN ORAL Insomnia 07/22/19 19:00 07/29/19 18:59 07/23/19 20:40 Allergies: Coded Allergies: No Known Allergies (Unverified , 07/22/19) ROS Limited/Unobtainable: No Constitutional: Reports: no symptoms HEENT: Reports: no symptoms Cardiovascular: Reports: no symptoms Respiratory: Reports: no symptoms Gastrointestinal/Abdominal: Reports: no symptoms Genitourinary: Reports: no symptoms Neurologic/Psychiatric: Reports: no symptoms Subjective 63 YO M admitted with palpitations. Now supraventricular tachycardia. [place] for Int Med - Dr Marie. TRUDI Objective Last Vital Signs Date Time Temp Pulse Resp B/P (MAP) Pulse Ox O2 Delivery O2 Flow Rate FiO2 07/25/19 12:00 Nasal Cannula 2.0 07/25/19 12:00 98.0 70 20 145/94 (111) 100 07/25/19 07:55 28 Laboratory Tests Test 07/25/19 03:50 White Blood Count 6.3 K/UL (4.8-10.8) Red Blood Count 4.36 M/UL (4.70-6.10) L Hemoglobin 13.4 G/DL (14.2-18.0) L Hematocrit 41.2 % (42.0-52.0) L Mean Corpuscular Volume 94 FL (80-99) Mean Corpuscular Hemoglobin 30.8 PG (27.0-31.0) Mean Corpuscular Hemoglobin Concent 32.6 G/DL (32.0-36.0) Red Cell Distribution Width 13.0 % (11.6-14.8) Platelet Count 80 K/UL (150-450) L Mean Platelet Volume 7.9 FL (6.5-10.1) Neutrophils (%) (Auto) % (45.0-75.0) Lymphocytes (%) (Auto) % (20.0-45.0) Monocytes (%) (Auto) % (1.0-10.0) Eosinophils (%) (Auto) % (0.0-3.0) Basophils (%) (Auto) % (0.0-2.0) Differential Total Cells Counted 100 Neutrophils % (Manual) 50 % (45-75) Lymphocytes % (Manual) 43 % (20-45) Monocytes % (Manual) 5 % (1-10) Eosinophils % (Manual) 2 % (0-3) Basophils % (Manual) 0 % (0-2) Band Neutrophils 0 % (0-8) Platelet Estimate Decreased L Platelet Morphology Normal Red Blood Cell Morphology Normal Sodium Level 142 MMOL/L (136-145) Potassium Level 4.2 MMOL/L (3.5-5.1) Chloride Level 101 MMOL/L (98-107) Carbon Dioxide Level 35 MMOL/L (21-32) H Anion Gap 7 mmol/L (5-15) Blood Urea Nitrogen 24 mg/dL (7-18) H Creatinine 9.5 MG/DL (0.55-1.30) H Estimat Glomerular Filtration Rate 6.8 mL/min (>60) Glucose Level 92 MG/DL (74-106) Calcium Level 8.3 MG/DL (8.5-10.1) L Microbiology Date/Time Source Procedure Growth Status 07/22/19 17:30 Nasal Nares MRSA Culture - Final NO METHICILLIN RESISTANT STAPH AUREUS... Complete 07/22/19 17:30 Rectum VRE Culture - Final NO VANCOMYCIN RESISTANT ENTEROCOCCUS ... Complete Intake and Output 07/24/19 07/25/19 19:00 07:00 Intake Total 2000 ml Output Total 100 ml Balance 1900 ml Hemodialysis 2000 ml Output Urine Total 100 ml # Voids 1 Objective PHYSICAL EXAMINATION: GENERAL: The patient is awake and responsive, in no acute distress. HEAD AND NECK: Pupils are equal and reactive to light. Extraocular muscles intact. Neck was supple. No JVD. LUNGS: Good air entry. No wheeze or rhonchi. Decreased in the bases. HEART: S1, S2. Tachycardic. No murmur or gallops. ABDOMEN: Soft, nondistended, and nontender. Positive bowel sounds. EXTREMITIES: No cyanosis, clubbing, or edema. Left upper extremity AV fistula was noted functional. NEUROLOGIC: Cranial nerves II to XII grossly intact. The patient is moving all the extremities. Lower extremities weaker than upper extremities. The patient is mostly wheelchair bound. RECTAL/GENITOURINARY: Refused and deferred. PSYCHIATRIC: Mood and affect is intact. Assessment/Plan Assessment/Plan ASSESSMENT: 1. Supraventricular tachycardia. 2. End-stage renal disease, on hemodialysis. 3. Hypertension. 4. Anemia of chronic kidney disease. 5. Thrombocytopenia. PLAN: 1. Admit the patient to step-down TRUDI. 2. Dr. Francisco = Pulmonary Critical Care, 3. Dr. Toro = Nephrology, 4. Dr. Whitmore = Cardiology electrophysiology. 5. Code status, Full Code. 6. DVT prophylaxis, heparin subcutaneous. 7. Hemodialysis 07/24/19 8. PATIENT THREATENING TO LEAVE AGAINST MEDICAL ADVISE Luis Bowers MD Jul 25, 2019 14:08
[2019-07-25 16:00] VITALS: BP 157/90
--- NOTE | 2019-07-25 19:15 | NUR ---
NURSE NOTES: Received report from MARA Holguin. Pt. in bed, awake, alert X4. On 2L NC with an O2 saturating 98% Denies pain or discomfort. Left EJ #18G catheter intact and patent. Left upper arm AV shunt w/bruit and thrill present. HD scheduled for HD tomorrow. [facility] aware per Ezio. will follow up with [facility]. Dinner tray in table untouched. Pt claims he's not hungry. Reading glasses and Samsung cell phone at bedside. SR on blow mold technician.Bed in lowest position with safety wheels and alarm engaged. Call light within easy access. Side rails up X3. Will continue to monitor and POC.
[2019-07-25 20:00] VITALS: BP 181/87
[2019-07-25] MEDS: Zolpidem 5mg tab ORAL PRN ×2 (20:49→20:57)
[2019-07-25] MEDS: Atorvastatin 20mg tab ORAL SCH (20:58)
[2019-07-26] VITALS: BP 158/84
--- NOTE | 2019-07-26 02:40 | NUR ---
HAND-OFF: Report given to Kate Danielle RN.
--- NOTE | 2019-07-26 02:42 | NUR ---
NURSE NOTES: Received report from Derek Cueto RN. Pt. observed sleeping in bed. Pt is on tele monitor with a HR of 76 noted and no s/sx of cardiac distress. Pt on 2L NC with no s/sx of respiratory distress noted. Mild wheezing noted bilaterally upon auscultation. Left EJ 18G IV catheter noted which remains asymptomatic, intact and patent. Pt denies pain at this time. Left upper arm AV shunt noted; bruit and thrill present. HD scheduled for Friday07/26/19, [facility] previously contacted. Skin alterations noted, continues to refuse full skin assessment. Reading glasses and [employer] cell phone remain present at bedside. Pt remains resting in bed; bed remains in lowest position with safety wheels engaged, call light within easy reach, bed alarm on, side rails up x3 and bed alarm activated. Will continue plan of care. Will continue to monitor.
[2019-07-26 04:00] VITALS: BP 146/85
[2019-07-26 04:58] LABS: HEMATOCRIT 40.7 % (42.0-52.0); HEMOGLOBIN 13.3 G/DL (14.2-18.0); MEAN CORPUSCULAR VOLUME 94 FL (80-99); PLATELET COUNT 85 K/UL (150-450); RED BLOOD COUNT 4.31 M/UL (4.70-6.10); RED CELL DISTRIBUTION WIDTH 12.8 % (11.6-14.8); WHITE BLOOD COUNT 5.6 K/UL (4.8-10.8)
[2019-07-26 05:03] LABS: ANION GAP 7 mmol/L (5-15); BLOOD UREA NITROGEN 34 mg/dL (7-18); CALCIUM 8.4 MG/DL (8.5-10.1); CARBON DIOXIDE 33 MMOL/L (21-32); CHLORIDE 101 MMOL/L (98-107); CREATININE 11.2 MG/DL (0.55-1.30); POTASSIUM 4.6 MMOL/L (3.5-5.1); SODIUM 141 MMOL/L (136-145)
[2019-07-26] MEDS: NovoLOG Insulin Flexpen SUBQ SCH (06:05)
--- NOTE | 2019-07-26 07:02 | NUR ---
NURSE NOTES: Wound care nurse present at bedside to assess patient.
--- NOTE | 2019-07-26 07:26 | NUR ---
HAND-OFF: Report given to MARA Holguin. Pt remains stable at this time.
--- NOTE | 2019-07-26 07:30 | NUR ---
REPORT RECEIVED FROM TOMMY Clifton RN PT. AWAKE AND ORIENTED X4 MOVES ALL EXTREMETIES SKIN WARM AN DRY TO TOUCH O2 2L NO RESP DISTRESS
[2019-07-26 08:00] VITALS: BP 163/91
[2019-07-26] MEDS: Metoprolol Succinate XL 50mg tab ORAL SCH (08:46)
[2019-07-26] MEDS: DULoxetine 30mg cap ORAL SCH (08:46)
[2019-07-26] MEDS: Aspirin EC 81mg tab ORAL SCH (08:47)
--- NOTE | 2019-07-26 08:59 | Nephrology Progress Note ---
Assessment/Plan Problem List: (1) ESRD (end stage renal disease) (2) Polycystic kidney disease (3) Tachycardia (4) Hypertensive kidney disease (5) Anemia in chronic kidney disease (CKD) Assessment ESRD PCKD Tachyarrythmia HTN , however Hypotensive periodically Anemia Depression Plan HD 07/24 next 07/26- However if transfer to for ablation happens earlier , will arrange HD at per cardiology- discussed with Dr Calvillo per orders Cardiology: Recurrent palpitations of sudden onset and termination despite Lopressor 50 bid. 12 lead ECG by Paramedics at 12:02 and 12:09 and ECG at [place] at 13:37 on all same morphology. Likely SVT with aberrancy ( RBBB, LAFB) as 12 lead in SR has identical ECG morphology. Needs EP Study and ablation at [facility] as patient was hypotensive during the episodes Subjective ROS Limited/Unobtainable: No Constitutional: Reports: malaise, weakness, other - denies chest pain Objective Objective Last 24 Hour Vital Signs Date Time Temp Pulse Resp B/P (MAP) Pulse Ox O2 Delivery O2 Flow Rate FiO2 07/26/19 08:46 63 163/91 07/26/19 08:00 Nasal Cannula 2.0 07/26/19 08:00 97.9 63 21 163/91 (115) 96 07/26/19 04:00 Nasal Cannula 2.0 07/26/19 04:00 98.2 71 20 146/85 (105) 97 07/26/19 03:32 63 07/26/19 00:00 Nasal Cannula 2.0 07/26/19 00:00 96.5 60 18 158/84 (108) 97 07/25/19 21:00 96 Nasal Cannula 2.0 28 07/25/19 20:57 65 181/87 07/25/19 20:56 181/87 07/25/19 20:00 Nasal Cannula 2.0 07/25/19 20:00 97.5 65 17 181/87 (118) 98 07/25/19 20:00 67 07/25/19 20:00 66 18 97 Nasal Cannula 2.0 28 07/25/19 16:00 Nasal Cannula 2.0 07/25/19 16:00 66 07/25/19 16:00 98.1 67 20 157/90 (112) 100 07/25/19 12:00 Nasal Cannula 2.0 07/25/19 12:00 98.0 70 20 145/94 (111) 100 07/25/19 12:00 66 Intake and Output 07/25/19 07/26/19 19:00 07:00 Intake Total 640 ml 32 ml Output Total 80 ml Balance 560 ml 32 ml Intake Oral 32 ml Other 640 ml Output Urine Total 80 ml # Voids 1 Current Medications Medications (Trade) Dose Ordered Sig/Cristofer Route PRN Reason Start Time Stop Time Status Last Admin Dose Admin Acetaminophen (Tylenol) 650 mg Q4H PRN ORAL fever 07/22/19 19:00 08/21/19 18:59 Albuterol/ Ipratropium (Albuterol/ Ipratropium) 3 ml Q6H PRN HHN dyspnea 07/25/19 10:00 07/30/19 09:59 Aspirin (Ecotrin) 81 mg DAILY ORAL 07/23/19 09:00 08/22/19 08:59 07/26/19 08:47 Atorvastatin Calcium (Lipitor) 20 mg BEDTIME ORAL 07/22/19 21:00 08/21/19 20:59 07/25/19 20:58 Clonidine HCl (Catapres Tab) 0.1 mg Q4H PRN ORAL For High Blood Pressure 07/22/19 19:00 08/21/19 18:59 07/25/19 20:56 Dextrose (Dextrose 50%) 25 ml Q30M PRN IV Hypoglycemia 07/22/19 19:00 08/21/19 18:59 Dextrose (Dextrose 50%) 50 ml Q30M PRN IV Hypoglycemia 07/22/19 19:00 08/21/19 18:59 Duloxetine HCl (Cymbalta) 30 mg DAILY ORAL 07/23/19 09:00 08/22/19 08:59 07/26/19 08:46 Gabapentin (Neurontin) 100 mg THREE TIMES A DAY ORAL 07/23/19 09:00 08/22/19 08:59 07/26/19 08:46 Insulin Aspart (NovoLOG) BEFORE MEALS AND HS SUBQ 07/22/19 21:00 08/21/19 20:59 Metoprolol Succinate (Toprol XL) 50 mg Q12HR ORAL 07/23/19 09:00 08/22/19 08:59 07/26/19 08:46 Ondansetron HCl (Zofran) 4 mg Q6H PRN IVP Nausea & Vomiting 07/22/19 19:00 08/21/19 18:59 Polyethylene Glycol (Miralax) 17 gm HSPRN PRN ORAL Constipation 07/22/19 19:00 08/21/19 18:59 Zolpidem Tartrate (Ambien) 5 mg HSPRN PRN ORAL Insomnia 07/22/19 19:00 07/29/19 18:59 07/25/19 20:49 Laboratory Tests 07/26/19 04:10: White Blood Count 5.6, Red Blood Count 4.31L, Hemoglobin 13.3L, Hematocrit 40.7L , Mean Corpuscular Volume 94, Mean Corpuscular Hemoglobin 30.9, Mean Corpuscular Hemoglobin Concent 32.7, Red Cell Distribution Width 12.8, Platelet Count 85L, Mean Platelet Volume 9.0, Neutrophils (%) (Auto) , Lymphocytes (%) ( Auto) , Monocytes (%) (Auto) , Eosinophils (%) (Auto) , Basophils (%) (Auto) , Sodium Level 141, Potassium Level 4.6, Chloride Level 101, Carbon Dioxide Level 33H, Anion Gap 7, Blood Urea Nitrogen 34H, Creatinine 11.2H, Estimat Glomerular Filtration Rate 5.6, Glucose Level 91, Calcium Level 8.4L Height (Feet): 6 Height (Inches): 5.00 Weight (Pounds): 160 General Appearance: no apparent distress, confused Cardiovascular: normal rate Respiratory/Chest: decreased breath sounds Abdomen: soft, distended Darron Toro MD Jul 26, 2019 08:59
--- NOTE | 2019-07-26 10:33 | Cardiac Electrophysiology PN ---
Assessment/Plan Assessment/Plan 1. Recurrent palpitation/ documented SVT. The patient states that he has had palpitation off and on over the last year, but never this severe and never lasted this long. EKG showed wide complex tachycardia with no discrete P-wave with right bundle-branch block and left axis deviation morphology. Likely SVT with aberrancy, right bundle-branch block and left anterior hemiblock morphology. This happened while the patient is on metoprolol 50 mg b.i.d. The best option at this point would be to undergo electrophysiology study . Awaiting Transfer the patient to [facility] for further evaluation. 2. Hypertension on Toprol 50 mg b.i.d. as well p.r.n. clonidine. 3. End-stage renal disease, on hemodialysis. 4. Hyperlipidemia on Lipitor. DW [facility] transfer CTR. Awaiting bed today Subjective Subjective No SVT overnight. 12 lead ECG by Paramedics at 12:02 and 12:09 and ECG at [place] at 13:37 on all same morphology. Likely SVT with aberrancy ( RBBB, LAFB) as 12 lead in SR has identical ECG morphology. Awaiting EP Study and ablation at [facility]. No bed yet per transfer CTR yet. Scheduled for HD today Objective Last 24 Hour Vital Signs Date Time Temp Pulse Resp B/P (MAP) Pulse Ox O2 Delivery O2 Flow Rate FiO2 07/26/19 08:46 63 163/91 07/26/19 08:00 Nasal Cannula 2.0 07/26/19 08:00 97.9 63 21 163/91 (115) 96 07/26/19 04:00 Nasal Cannula 2.0 07/26/19 04:00 98.2 71 20 146/85 (105) 97 07/26/19 03:32 63 07/26/19 00:00 Nasal Cannula 2.0 07/26/19 00:00 96.5 60 18 158/84 (108) 97 07/25/19 21:00 96 Nasal Cannula 2.0 28 07/25/19 20:57 65 181/87 07/25/19 20:56 181/87 07/25/19 20:00 Nasal Cannula 2.0 07/25/19 20:00 97.5 65 17 181/87 (118) 98 07/25/19 20:00 67 2/9/20 20:00 66 18 97 Nasal Cannula 2.0 28 07/25/19 16:00 Nasal Cannula 2.0 07/25/19 16:00 66 07/25/19 16:00 98.1 67 20 157/90 (112) 100 07/25/19 12:00 Nasal Cannula 2.0 07/25/19 12:00 98.0 70 20 145/94 (111) 100 07/25/19 12:00 66 Intake and Output 07/25/19 07/26/19 19:00 07:00 Intake Total 640 ml 32 ml Output Total 80 ml Balance 560 ml 32 ml Intake Oral 32 ml Other 640 ml Output Urine Total 80 ml # Voids 1 Laboratory Tests Test 07/26/19 04:10 White Blood Count 5.6 K/UL (4.8-10.8) Red Blood Count 4.31 M/UL (4.70-6.10) L Hemoglobin 13.3 G/DL (14.2-18.0) L Hematocrit 40.7 % (42.0-52.0) L Mean Corpuscular Volume 94 FL (80-99) Mean Corpuscular Hemoglobin 30.9 PG (27.0-31.0) Mean Corpuscular Hemoglobin Concent 32.7 G/DL (32.0-36.0) Red Cell Distribution Width 12.8 % (11.6-14.8) Platelet Count 85 K/UL (150-450) L Mean Platelet Volume 9.0 FL (6.5-10.1) Neutrophils (%) (Auto) % (45.0-75.0) Lymphocytes (%) (Auto) % (20.0-45.0) Monocytes (%) (Auto) % (1.0-10.0) Eosinophils (%) (Auto) % (0.0-3.0) Basophils (%) (Auto) % (0.0-2.0) Sodium Level 141 MMOL/L (136-145) Potassium Level 4.6 MMOL/L (3.5-5.1) Chloride Level 101 MMOL/L (98-107) Carbon Dioxide Level 33 MMOL/L (21-32) H Anion Gap 7 mmol/L (5-15) Blood Urea Nitrogen 34 mg/dL (7-18) H Creatinine 11.2 MG/DL (0.55-1.30) H Estimat Glomerular Filtration Rate 5.6 mL/min (>60) Glucose Level 91 MG/DL (74-106) Calcium Level 8.4 MG/DL (8.5-10.1) L Objective HEAD AND NECK: No jugular venous distention. LUNGS: Clear. CARDIOVASCULAR: Regular S1 and S2 with no gallop or murmur. ABDOMEN: Soft. EXTREMITIES: No pitting edema. Gerard Whitmore MD Jul 26, 2019 10:33
--- NOTE | 2019-07-26 10:53 | Pulmonology Progress Note ---
Assessment/Plan Problems: (1) Hypotension (2) COPD (chronic obstructive pulmonary disease) (3) Tachycardia (4) Nicotine addiction (5) Polycystic kidney disease (6) ESRD (end stage renal disease) (7) History of hypertension (8) Depression Assessment/Plan telemetry monitoring, has been in sinus rhythm for HD today respiratory treatment Nicotine Patch if needed echo reviewed, EF is 45% titrate cardiac meds dvt prophylaxis antidepressants Subjective ROS Limited/Unobtainable: No Constitutional: Reports: no symptoms HEENT: Repors: no symptoms Allergies: Coded Allergies: No Known Allergies (Unverified , 07/22/19) Objective Last 24 Hour Vital Signs Date Time Temp Pulse Resp B/P (MAP) Pulse Ox O2 Delivery O2 Flow Rate FiO2 07/26/19 08:46 63 163/91 07/26/19 08:00 Nasal Cannula 2.0 07/26/19 08:00 97.9 63 21 163/91 (115) 96 07/26/19 04:00 Nasal Cannula 2.0 07/26/19 04:00 98.2 71 20 146/85 (105) 97 07/26/19 03:32 63 07/26/19 00:00 Nasal Cannula 2.0 07/26/19 00:00 96.5 60 18 158/84 (108) 97 07/25/19 21:00 96 Nasal Cannula 2.0 28 07/25/19 20:57 65 181/87 07/25/19 20:56 181/87 07/25/19 20:00 Nasal Cannula 2.0 07/25/19 20:00 97.5 65 17 181/87 (118) 98 07/25/19 20:00 67 07/25/19 20:00 66 18 97 Nasal Cannula 2.0 28 07/25/19 16:00 Nasal Cannula 2.0 07/25/19 16:00 66 07/25/19 16:00 98.1 67 20 157/90 (112) 100 07/25/19 12:00 Nasal Cannula 2.0 07/25/19 12:00 98.0 70 20 145/94 (111) 100 07/25/19 12:00 66 Intake and Output 07/25/19 07/26/19 18:59 06:59 Intake Total 640 ml 32 ml Output Total 80 ml Balance 560 ml 32 ml Intake Oral 32 ml Other 640 ml Output Urine Total 80 ml # Voids 1 General Appearance: cachetic HEENT: normocephalic, atraumatic Respiratory/Chest: chest wall non-tender, lungs clear Cardiovascular: normal peripheral pulses, normal rate Abdomen: normal bowel sounds, soft, non tender Genitourinary: normal external genitalia Extremities: no clubbing 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 Laboratory Tests 07/26/19 04:10: White Blood Count 5.6, Red Blood Count 4.31L, Hemoglobin 13.3L, Hematocrit 40.7L , Mean Corpuscular Volume 94, Mean Corpuscular Hemoglobin 30.9, Mean Corpuscular Hemoglobin Concent 32.7, Red Cell Distribution Width 12.8, Platelet Count 85L, Mean Platelet Volume 9.0, Neutrophils (%) (Auto) , Lymphocytes (%) ( Auto) , Monocytes (%) (Auto) , Eosinophils (%) (Auto) , Basophils (%) (Auto) , Sodium Level 141, Potassium Level 4.6, Chloride Level 101, Carbon Dioxide Level 33H, Anion Gap 7, Blood Urea Nitrogen 34H, Creatinine 11.2H, Estimat Glomerular Filtration Rate 5.6, Glucose Level 91, Calcium Level 8.4L Current Medications Medications (Trade) Dose Ordered Sig/Cristofer Route PRN Reason Start Time Stop Time Status Last Admin Dose Admin Acetaminophen (Tylenol) 650 mg Q4H PRN ORAL fever 07/22/19 19:00 08/21/19 18:59 Albuterol/ Ipratropium (Albuterol/ Ipratropium) 3 ml Q6H PRN HHN dyspnea 07/25/19 10:00 07/30/19 09:59 Aspirin (Ecotrin) 81 mg DAILY ORAL 07/23/19 09:00 08/22/19 08:59 07/26/19 08:47 Atorvastatin Calcium (Lipitor) 20 mg BEDTIME ORAL 07/22/19 21:00 08/21/19 20:59 07/25/19 20:58 Clonidine HCl (Catapres Tab) 0.1 mg Q4H PRN ORAL For High Blood Pressure 07/22/19 19:00 08/21/19 18:59 07/25/19 20:56 Dextrose (Dextrose 50%) 25 ml Q30M PRN IV Hypoglycemia 07/22/19 19:00 08/21/19 18:59 Dextrose (Dextrose 50%) 50 ml Q30M PRN IV Hypoglycemia 07/22/19 19:00 08/21/19 18:59 Duloxetine HCl (Cymbalta) 30 mg DAILY ORAL 07/23/19 09:00 08/22/19 08:59 07/26/19 08:46 Gabapentin (Neurontin) 100 mg THREE TIMES A DAY ORAL 07/23/19 09:00 08/22/19 08:59 07/26/19 08:46 Insulin Aspart (NovoLOG) BEFORE MEALS AND HS SUBQ 07/22/19 21:00 08/21/19 20:59 Metoprolol Succinate (Toprol XL) 50 mg Q12HR ORAL 07/23/19 09:00 08/22/19 08:59 07/26/19 08:46 Ondansetron HCl (Zofran) 4 mg Q6H PRN IVP Nausea & Vomiting 07/22/19 19:00 08/21/19 18:59 Polyethylene Glycol (Miralax) 17 gm HSPRN PRN ORAL Constipation 07/22/19 19:00 08/21/19 18:59 Zolpidem Tartrate (Ambien) 5 mg HSPRN PRN ORAL Insomnia 07/22/19 19:00 07/29/19 18:59 07/25/19 20:49 Funmilayo Francisco MD Jul 26, 2019 10:53
--- NOTE | 2019-07-26 10:54 | NUR ---
*-* DISCHARGE PLANNING *-* PATIENT HAS BEEN ACCEPTED AT [facility] ROOM# 3SPTM (OVER FLOW THEY WILL ASSIGN ROOM ONCE PT ARRIVES) T: [phone] FOR NURSE REPORT PLEASE CALL 30 MINUTES BEFORE TX PICKS PATIENT UP
[2019-07-26 12:00] VITALS: BP 177/89
--- NOTE | 2019-07-26 12:30 | NUR ---
pt discharg to [facility]
--- NOTE | 2019-07-27 11:27 | Discharge Summary ---
Discharge Summary Discharge Summary _ DATE OF ADMISSION: 07/22/2019 DATE OF DISCHARGE: 07/26/2019 DISCHARGED BY: Dr. Marie REASON FOR ADMISSION: 63 years old male with past medical history significant for hypertension, end- stage renal disease, on hemodialysis, renal osteodystrophy, secondary to hyperparathyroidism, anxiety disorder, history of right knee injury , status post knee surgery, left upper extremity AV fistula placement, presented to emergency department with complaint of palpitations. Upon evaluation in emergency room patient was noted to have heart rate of 122 . Shortly after initial evaluation subsequently was admitted to the hospital with supraventricular tachycardia . CONSULTANTS: print finisher Dr. Corona pulmonary Dr. Francisco state comptroller Dr. Toro ultrasonic seaming machine operator/oncologist HOSPITAL COURSE: Patient admitted to direct observational unit. First troponin was negative, second troponin was elevated 0.80. No complaint of chest pain. Elevated troponin was possibly due to renal failure versus supraventricular tachycardia. EKG showed wide-complex tachycardia with no discrete P waves, right bundle branch block and left axis deviation morphology. Likely SVT with aberrancy, right bundle branch block and left anterior hemiblock morphology ( patient was on metoprolol 50 mg twice daily). Buccaro -beef splitter recommended transfer to [facility] for EP study and further management. Blood pressure was managed with beta-mary. Statin continued. Echocardiogram demonstrated mildly reduced ejection fraction of 45 to 50% with mild global left ventricular hypokinesis ; right ventricular systolic pressure of 33. Patient was on beta-mary and dialysis. DVT prophylaxis with heparin provided. Platelets trended down . Subcutaneous heparin stopped when platelet count trended down to 80. Venous duplex bilateral lower extremity revealed no evidence of acute DVT. Patient started on SCD for mechanical prophylaxis of DVT. Hemodialysis provided at per state comptroller recommendations with close monitoring of volumes, renal parameters and electrolytes. Patient was counseled on smoking cessation. Blood sugar was managed with sliding scale of insulin. Patient declined nicotine patch. Supportive care provided. Supplemental oxygen provided and titrated to keep pulse oximetry above 92%. Pulse oximetry was stable on room air. Bronchodilator treatment via HHN provided as needed. Chest x-ray revealed no acute cardiopulmonary pathology. Hemoglobin and hematocrit were closely monitored with goal to keep hemoglobin above 7. Prior to discharge hemoglobin 13.3, hematocrit 40.7. Monitored bed was secured at [facility] for EP study. Patient was stable for transfer via [facility]. FINAL DIAGNOSES: Supraventricular tachycardia with aberrancy End-stage renal disease, on hemodialysis Hypotension -resolved Hypertensive kidney disease Hyperlipidemia COPD Nicotine addiction Anemia of chronic kidney disease Thrombocytopenia Polycystic kidney disease DISCHARGE MEDICATIONS: See Medication Reconciliation list. DISCHARGE INSTRUCTIONS: Patient was transferred to [facility] via [facility] for EP study. Treasure Montesinos NP Jul 27, 2019 11:27
== END 2019-07-26 12:30 | disposition short-term general hospital (02) | DRG 308 ==
LOC: EDBD 12:53 → EMR 13:57 → EDBEDREQ 16:02 → 2W 16:09 → EDBEDREQ 17:08 → 2W 07-23 21:48
PROC: 5A1D70Z Performance of Urinary Filtration, Intermittent, Less than 6 Hours Per Day (ICD-10-PCS; principal; 2019-07-26)
DX: I47.1 Supraventricular tachycardia (principal); N18.6 End stage renal disease; I12.0 Hypertensive chronic kidney disease with stage 5 chronic kidney disease or end stage renal disease; D63.1 Anemia in chronic kidney disease; Z99.2 Dependence on renal dialysis; D69.6 Thrombocytopenia, unspecified; I45.10 Unspecified right bundle-branch block; N28.1 Cyst of kidney, acquired; F41.9 Anxiety disorder, unspecified; N25.0 Renal osteodystrophy
CPT/HCPCS: 36415; 71045; 80048; 80053; 80061; 82550; 82553; 82962; 83036; 83605; 83735; 83880; 84100; 84439; 84443; 84484; 84550; 85007; 85025; 86140; 86706; 87040; 87081; 93005; 93306; 93970; 94640; 94664; 99285; J1815; J7620